=== PATIENT | male | born 1955 | race Caucasian/White ===

== ENCOUNTER → 2020-08-22 11:36 | Outpatient (BNVA) | payer MEDICARE, SELFPAY | PROVIDERS: Visit Provider Nurse Practitioner Family | DX: E78.5 Hyperlipidemia, unspecified (principal); I10 Essential (primary) hypertension; R60.0 Localized edema | CPT/HCPCS: 80053; 80061; 83880 ==

== ENCOUNTER → 2021-06-21 09:10 | Outpatient (BNVA) | payer MEDICARE, SELFPAY | PROVIDERS: PCP Nurse Practitioner Family; Referring Provider Nurse Practitioner Family; Visit Provider Specialist | DX: G62.89 Other specified polyneuropathies (principal); F17.210 Nicotine dependence, cigarettes, uncomplicated | CPT/HCPCS: 95909 ==

== ENCOUNTER → 2021-09-27 09:19 | Outpatient (BNVA) | payer MEDICARE, SELFPAY | PROVIDERS: PCP Nurse Practitioner Family; Visit Provider Nurse Practitioner Family | DX: E78.5 Hyperlipidemia, unspecified (principal); I10 Essential (primary) hypertension | CPT/HCPCS: 80053; 80061 ==

== ENCOUNTER → 2021-10-01 08:00 | Outpatient (BNVA) | payer MEDICARE, SELFPAY | PROVIDERS: PCP Nurse Practitioner Family; Visit Provider Nurse Practitioner Family | DX: R73.9 Hyperglycemia, unspecified (principal) | CPT/HCPCS: 83036 ==

== ENCOUNTER → 2022-11-19 10:09 | Outpatient (BNVA) | payer MEDICARE, SELFPAY | PROVIDERS: PCP Nurse Practitioner Family; Visit Provider Nurse Practitioner Family | DX: E78.5 Hyperlipidemia, unspecified (principal); I10 Essential (primary) hypertension | CPT/HCPCS: 80053; 80061; 85025 ==

== ENCOUNTER 2023-01-06 12:09 | Outpatient (CLI) | payer MEDICARE, SELFPAY ==
--- NOTE | 2023-01-06 12:19 | USCV_ITS ---
Smith Lopez Age: 67 Gender: M : 1955 Exam Date: 01/06/2023 12:39 Ordering Phys: Sunita Quiroga NP Technologist: CT Exam Location: [facility] [place] Indication: neuropathy Risk Factors: Previous Vascular Surgery: RIGHT LEFT BP: / BP: 146.0/ 88.00 0 Waveform Velocity (cm/s) Velocity (cm/s) Waveform Iliac Prox 85.2 Triphasic Iliac Mid 93.3 Triphasic Iliac Distal 125.5 Triphasic FILER METAL PATTERNS Triphasic 133.8 SFA Prox 94.7 Triphasic SFA Mid 98.7 Triphasic SFA Dist 119.7 Triphasic POP 71.0 Triphasic DELIVERY AND MAIL SORTER 45.6 Triphasic DPA 132.1 Triphasic DARRYL 1.0 FINDINGS Mild diffuse plaques in the iliac, femoral, popliteal and infrapopliteal vessels on the left side Normal/near normal Doppler flow velocities in the waveforms Normal resting DARRYL 1.0 CONCLUSIONS Mild diffuse plaques in the iliac, femoral, popliteal and infrapopliteal vessels on the left side. Normal resting DARRYL suggesting no significant arterial obstruction Dr Jaren Black MD [facility] (Electronically Signed) Final Date: 06 January 2023 20:04 S
== END 2023-01-06 12:10 | disposition home or self-care (01) ==
PROVIDERS: PCP Nurse Practitioner Family; Visit Provider Nurse Practitioner Family
DX: G25.81 Restless legs syndrome (principal); G62.9 Polyneuropathy, unspecified; I70.202 Unspecified atherosclerosis of native arteries of extremities, left leg
CPT/HCPCS: 93926

== ENCOUNTER 2023-01-28 20:00 | Outpatient (CLI) | payer MEDICARE, SELFPAY | END 2023-01-28 20:01 | disposition home or self-care (01) | LOC: SLEEP 23:18 | PROVIDERS: PCP Nurse Practitioner Family; Visit Provider Nurse Practitioner Family | DX: G47.33 Obstructive sleep apnea (adult) (pediatric) (principal); G47.10 Hypersomnia, unspecified | CPT/HCPCS: 95810 ==

== ENCOUNTER → 2023-02-03 13:44 | Outpatient (BNVA) | payer MEDICARE, SELFPAY | PROVIDERS: PCP Nurse Practitioner Family; Referring Provider Nurse Practitioner Family; Visit Provider Nurse Practitioner | DX: M17.12 Unilateral primary osteoarthritis, left knee | CPT/HCPCS: 20610; 73560; 73565; 99204; 99213; J1100; J2795; J3301 ==

== ENCOUNTER 2023-03-26 09:17 | Outpatient (CLI) | payer MEDICARE, SELFPAY | END 2023-03-26 09:18 | disposition home or self-care (01) | PROVIDERS: PCP Nurse Practitioner Family; Visit Provider Nurse Practitioner Family | DX: G95.29 Other cord compression (principal); G82.20 Paraplegia, unspecified; R32 Unspecified urinary incontinence | CPT/HCPCS: 99205 ==

== ENCOUNTER 2023-03-26 14:51 | Observation (INO) | payer MEDICARE, SELFPAY ==
[2023-03-26 16:12] VITALS: BMI 31.6
[2023-03-26 16:48] VITALS: BP 139/79; PULSE 72; RESP 16; TEMP 36.9; O2SAT 94
--- NOTE | 2023-03-26 16:48 | CTR_ITS ---
PROCEDURE INFORMATION: Exam: CT Head Without And With Contrast Exam date and time: 03/26/2023 8:50 PM Age: 67 years old Clinical indication: Other: See notes; Additional info: Le weakness, spasticity, urine incontinence, include a venogram. Unable to undergo mri. TECHNIQUE: Imaging protocol: Computed tomography of the head without and with contrast. Radiation optimization: All CT scans at this facility use at least one of these dose optimization techniques: automated exposure control; mA and/or kV adjustment per patient size (includes targeted exams where dose is matched to clinical indication); or iterative reconstruction. Contrast material: OMNI 350; Contrast volume: 80 ml; Contrast route: INTRAVENOUS (IV); REPORTING DATA: Count of CT and Cardiac NM exams in prior 12 months: This patient has received 0 known CTs and 0 known cardiac nuclear medicine studies in the 12 months prior to the current study. COMPARISON: No relevant prior studies available. RADIATION DOSE METRICS: Total DLP (mGy-cm): 3458 FINDINGS: Brain: Normal. No hemorrhage. Unremarkable white matter. No mass effect. No abnormal enhancement. Cerebral ventricles: No ventriculomegaly. Paranasal sinuses: Visualized sinuses are unremarkable. No fluid levels. Mastoid air cells: Visualized mastoid air cells are well aerated. Bones/joints: Unremarkable. No acute fracture. Soft tissues: Unremarkable. CT/CT head wo/w con [id number] IMPRESSION: No acute intracranial abnormality.
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
[2023-03-26 19:45] VITALS: BP 181/81; PULSE 72; RESP 17; TEMP 36.8; O2SAT 95
[2023-03-26] MEDS: iohexol 350 mg/mL 500 mL Btl (per mL) IV (21:00)
[2023-03-26] MEDS: baclofen 10 mg Tablet 20 MG PO (22:45)
[2023-03-26] MEDS: gabapentin 400 mg Capsule 800 MG PO (22:45)
[2023-03-26] MEDS: atorvastatin 40 mg Tablet 20 MG PO (22:46)
[2023-03-26] MEDS: ropinirole 2 mg Tablet 4 MG PO (23:04)
[2023-03-26 23:30] VITALS: BP 147/74; PULSE 65; RESP 15; TEMP 37.1; O2SAT 95
--- NOTE | 2023-03-27 | IR_ITS ---
WS: [id number] MYELOGRAM CERVICAL SPINE Fluoroscopic guided cervical myelogram CLINICAL INFORMATION: Spasticity, LE weakness, urine incontinence TECHNIQUE: The procedure, including risks, benefits, and complications, were discussed with the patie nt who agreed to proceed. A timeout was performed to confirm correct patient, procedure, and site. Using sterile technique, the patient was prepped and draped in the usual sterile fashion. After admin istration of local anesthesia using 1% preservative-free lidocaine and using fluoroscopic guidance, a 22-gauge spinal needle was advanced into the subarachnoid space at the L2-3 level. Subsequently 12 c c of Omnipaque 240 was administered into the thecal sac. The needle was removed and hemostasis was ac hieved. Subsequently the table was tilted down and contrast flowed freely into the cervical spine. Sp ot fluoroscopic images were obtained. FLUOROSCOPIC TIME: 8min [id number] # of spot films: 3 Spot fluoroscopic images demonstrate prior postoperative changes cervical fusion. Lumbar curve. Advan paula spondylitic changes lumbar spine with multilevel degenerative disc disease. Osteopenia. Vascular calcification. Multilevel central canal stenosis lumbar spine worse at L3-4. Severe central canal jessi nosis with partial contrast block at T10-11. No high-grade central canal stenosis in the cervical spi ne. Previous cervical laminectomy defects. IMPRESSION: Uncomplicated cervical thoracic and lumbar myelogram Please see CT myelogram report for additional detail.
--- NOTE | 2023-03-27 00:48 | PC.NURSE ---
pt scan this nurse helped transfer pt to wheelchair to transport to ct for scan. pt was a 1-2 asisst each time.
[2023-03-27 04:33] VITALS: BP 147/72; PULSE 73; RESP 16; TEMP 36.8; O2SAT 95
[2023-03-27 05:12] LABS: Basophils % 0.3 %; Eosinophils # 0.3 10^3/uL (0.0-0.8); Eosinophils % 4.5 %; Hematocrit 40.9 % (37-53); Lymphocytes # 1.6 10^3/uL (0.8-4.8); Lymphocytes % 27.6 %; Mean Corpuscular HGB Conc 33.3 g/dL (30-55); Mean Corpuscular Hemoglobin 30.8 pg (27-33); Mean Corpuscular Volume 92.5 fl (82-101); Mean Platelet Volume 11.4 fL (7.4-10.4); Monocytes # 0.5 10^3/uL (0.2-0.9); Monocytes % 7.9 %; Neutrophils # 3.39 10^3/uL (1.8-7.7); Neutrophils % 59.4 %; Nucleated Red Blood Cells % 0 %; Platelet Count 175 10^3/cmm (157-399); Red Blood Count 4.42 10^6/uL (3.85-5.65); Red Cell Distribution Width 12.3 % (12.1-15.1); White Blood Count 5.72 10^3/uL (3.29-11.43)
[2023-03-27 05:35] LABS: Anion Gap 14.3 (5-19); Blood Urea Nitrogen 21 mg/dL (8-23); Calcium 8.9 mg/dL (8.5-10.5); Carbon Dioxide 25 mmol/L (22-29); Chloride 105 mmol/L (98-107); Glomerular Filtration Rate 112.8 mL/min (90-130); Glucose 116 mg/dL (65-115); Osmolality Calculated 294 mOsm/kg (285-295); Potassium 4.3 mmol/L (3.5-5.1); Sodium 140 mmol/L (136-145)
[2023-03-27 05:59] LABS: Magnesium 2.1 mg/dL (1.7-2.3); Vitamin B12 359 pg/mL (232-1245)
--- NOTE | 2023-03-27 06:22 | PC.NURSE ---
pt recuip pt takes his ropinirole differently at home to mange his pain. pt states he splits it up to be TID and now he is worried about pin control. this nurse assured him she would give that in report to oncoming nurse.
[2023-03-27] MEDS: acetaminophen 325 mg Tablet 650 MG PO (06:41)
[2023-03-27 08:00] VITALS: BP 175/85; PULSE 65; RESP 17; TEMP 36.6; O2SAT 92
[2023-03-27] MEDS: FUROsemide 20 mg Tablet PO ×2 (08:00→17:23)
[2023-03-27] MEDS: ropinirole 2 mg Tablet 4 MG PO ×2 (08:01→17:24)
[2023-03-27] MEDS: gabapentin 400 mg Capsule 800 MG PO ×3 (08:01→20:27)
[2023-03-27] MEDS: baclofen 10 mg Tablet 20 MG PO ×4 (08:01→20:27)
[2023-03-27] MEDS: potassium chloride ER 20 mEq Tablet PO (08:01)
--- NOTE | 2023-03-27 09:05 | PC.PHAR ---
PT STATES TAKES ROPINEROLE 4 MG 2MG 4 TIMES DAILY INSTEAD OF 4 MG TWICE DAILY
--- NOTE | 2023-03-27 10:08 | CT_ITS ---
WS: [id number] CT CERVICAL THORACIC AND LUMBAR MYELOGRAM TECHNIQUE: CT of the cervical thoracic and lumbar spine coronal and sagittal reformatted images post intrathecal administration of contrast. CLINICAL INFORMATION: pain, increasing weakness DLP: 947.57 mGy.cm (accession [id number]), 837.11 mGy.cm (accession [id number]), 709.48 mGy.c m (accession [id number]) All CT scans at [facility] use at least one of these dose optimization techniques: automated e xposure control; mA and/or kV adjustment per patient size (includes targeted exams where dose is matc hed to clinical indication); or iterative reconstruction. FINDINGS: Severe central canal stenosis at T10-11 due to central disc protrusion with indentation and flattenin g of the thoracic cord at this level. Slight anterolisthesis T10-11. Moderate to advanced facet arthr opathy at this level with ligamentum flavum hypertrophy. Spinal canal measures approximately 4.6 mm a t T10-11. Mild to moderate central canal stenosis at T12-L1 eccentric to the RIGHT with disc osteophyte complex . Mild to moderate narrowing thecal sac at L1-L2 and L2-L3. Severe central canal stenosis L3-4 and mode rate to severe at L4-5. Small central protrusions at T7-T8 and T9-T10 with mild central canal stenosis. Multilevel foraminal narrowing thoracic spine worse at bilateral T9-T10, bilateral T10-11. Moderate facet arthropathy lowe r thoracic spine. Severe RIGHT T12-L1 bony foraminal narrowing. Moderate bilateral L3-4 and L4-5 fora kajal narrowing. Straightening of the normal cervical lordosis with prior dorsal fusion C3-C6. Interconnecting rods ap pear intact. No significant hardware loosening. Ankylosis cervical spine at C2-C6. Decompressive lami nectomies C3-C6. No significant central canal stenosis in the cervical spine. Mild central canal stenosis due to tiny central disc osteophyte protrusions at C6-C7 and C7-T1. Mastoid air cells are well aerated. IMPRESSION: 1. Severe central canal stenosis at T10-11 with central disc protrusion. Indentation and flattening of the thoracic cord at this level. Partial contrast block at this level on the fluoroscopic images. 2. Mild to moderate central canal stenosis at T12-L1. 3. Multilevel central canal stenosis in the lumbar spine worse at L3-4 and L4-5 moderate to severe a t these levels worst at L3-4. 4. Severe RIGHT T12-L1 bony foraminal narrowing. 5. Moderate bilateral L3-4 L4-5 foraminal narrowing. 6. No significant central canal stenosis in the cervical spine.
--- NOTE | 2023-03-27 10:09 | CT_ITS ---
WS: [id number] CT CERVICAL THORACIC AND LUMBAR MYELOGRAM TECHNIQUE: CT of the cervical thoracic and lumbar spine coronal and sagittal reformatted images post intrathecal administration of contrast. CLINICAL INFORMATION: pain, increasing weakness DLP: 947.57 mGy.cm (accession [id number]), 837.11 mGy.cm (accession [id number]), 709.48 mGy.c m (accession [id number]) All CT scans at [facility] use at least one of these dose optimization techniques: automated e xposure control; mA and/or kV adjustment per patient size (includes targeted exams where dose is matc hed to clinical indication); or iterative reconstruction. FINDINGS: Severe central canal stenosis at T10-11 due to central disc protrusion with indentation and flattenin g of the thoracic cord at this level. Slight anterolisthesis T10-11. Moderate to advanced facet arthr opathy at this level with ligamentum flavum hypertrophy. Spinal canal measures approximately 4.6 mm a t T10-11. Mild to moderate central canal stenosis at T12-L1 eccentric to the RIGHT with disc osteophyte complex . Mild to moderate narrowing thecal sac at L1-L2 and L2-L3. Severe central canal stenosis L3-4 and mode rate to severe at L4-5. Small central protrusions at T7-T8 and T9-T10 with mild central canal stenosis. Multilevel foraminal narrowing thoracic spine worse at bilateral T9-T10, bilateral T10-11. Moderate facet arthropathy lowe r thoracic spine. Severe RIGHT T12-L1 bony foraminal narrowing. Moderate bilateral L3-4 and L4-5 fora kajal narrowing. Straightening of the normal cervical lordosis with prior dorsal fusion C3-C6. Interconnecting rods ap pear intact. No significant hardware loosening. Ankylosis cervical spine at C2-C6. Decompressive lami nectomies C3-C6. No significant central canal stenosis in the cervical spine. Mild central canal stenosis due to tiny central disc osteophyte protrusions at C6-C7 and C7-T1. Mastoid air cells are well aerated. IMPRESSION: 1. Severe central canal stenosis at T10-11 with central disc protrusion. Indentation and flattening of the thoracic cord at this level. Partial contrast block at this level on the fluoroscopic images. 2. Mild to moderate central canal stenosis at T12-L1. 3. Multilevel central canal stenosis in the lumbar spine worse at L3-4 and L4-5 moderate to severe a t these levels worst at L3-4. 4. Severe RIGHT T12-L1 bony foraminal narrowing. 5. Moderate bilateral L3-4 L4-5 foraminal narrowing. 6. No significant central canal stenosis in the cervical spine.
--- NOTE | 2023-03-27 10:09 | CT_ITS ---
WS: [id number] CT CERVICAL THORACIC AND LUMBAR MYELOGRAM TECHNIQUE: CT of the cervical thoracic and lumbar spine coronal and sagittal reformatted images post intrathecal administration of contrast. CLINICAL INFORMATION: pain, increasing weakness DLP: 947.57 mGy.cm (accession [id number]), 837.11 mGy.cm (accession [id number]), 709.48 mGy.c m (accession [id number]) All CT scans at [facility] use at least one of these dose optimization techniques: automated e xposure control; mA and/or kV adjustment per patient size (includes targeted exams where dose is matc hed to clinical indication); or iterative reconstruction. FINDINGS: Severe central canal stenosis at T10-11 due to central disc protrusion with indentation and flattenin g of the thoracic cord at this level. Slight anterolisthesis T10-11. Moderate to advanced facet arthr opathy at this level with ligamentum flavum hypertrophy. Spinal canal measures approximately 4.6 mm a t T10-11. Mild to moderate central canal stenosis at T12-L1 eccentric to the RIGHT with disc osteophyte complex . Mild to moderate narrowing thecal sac at L1-L2 and L2-L3. Severe central canal stenosis L3-4 and mode rate to severe at L4-5. Small central protrusions at T7-T8 and T9-T10 with mild central canal stenosis. Multilevel foraminal narrowing thoracic spine worse at bilateral T9-T10, bilateral T10-11. Moderate facet arthropathy lowe r thoracic spine. Severe RIGHT T12-L1 bony foraminal narrowing. Moderate bilateral L3-4 and L4-5 fora kajal narrowing. Straightening of the normal cervical lordosis with prior dorsal fusion C3-C6. Interconnecting rods ap pear intact. No significant hardware loosening. Ankylosis cervical spine at C2-C6. Decompressive lami nectomies C3-C6. No significant central canal stenosis in the cervical spine. Mild central canal stenosis due to tiny central disc osteophyte protrusions at C6-C7 and C7-T1. Mastoid air cells are well aerated. IMPRESSION: 1. Severe central canal stenosis at T10-11 with central disc protrusion. Indentation and flattening of the thoracic cord at this level. Partial contrast block at this level on the fluoroscopic images. 2. Mild to moderate central canal stenosis at T12-L1. 3. Multilevel central canal stenosis in the lumbar spine worse at L3-4 and L4-5 moderate to severe a t these levels worst at L3-4. 4. Severe RIGHT T12-L1 bony foraminal narrowing. 5. Moderate bilateral L3-4 L4-5 foraminal narrowing. 6. No significant central canal stenosis in the cervical spine.
--- NOTE | 2023-03-27 11:15 | PC.CHAP ---
Pastoral Care Encounter/Spiritual Assessment Type of Contact [] Declined detention deputy visit [] Patient/Family/Request visit [] Outpatient visit [] Follow-up visit [] Physician referral [] Code/Alert [x] Routine visit [] Staff referral [] Actively dying [] Patient sleeping [] Family support [] [] Out of room [] Palliative care [] [x] Receiving care in room [] Pre-surgical visit [] Trauma [] Long length of stay [] ICU visit [] Other: Relational/Emotional Strength [x] Patient feels connected with others/family/visitors/staff [] Distress [] Loneliness/isolation [] Abandonment Spirituality of Patient [x] Person of Maddi [] Attends Taoist of their Maddi [x] Believes in Prayer [] Reads Bible or Caodaism materials [] There are Spiritual issues to be addressed [employer] Strategist Interventions [x] Prayer [x] Active listening [x] Non-anxious presence [x] Spiritual/emotional support [] Crisis/trauma care [x] Spiritual counseling [] Bereavement support [] Provided bereavement packet [] Provided Bible/devotional materials [] Provided toy/stuffed animal, coloring book to patient or family member [] Provided Communion [] Anointing/[place] [] Salvation [x] Completed spiritual assessment [] Other: Impact on Illness or Injury [] Angry [] Fearful [] Anxious [] Often cries [] Exhaustion [] Unable to work [] Unable to attend christianity [] Unable to walk/stand [] Unable to read [] Unable to drive [] Unable to eat/drink [] Unable to sleep [] Unable to be with family [] Patient intubated [] Other: Summary has pain and unable to move has nerve from back into leg waiting on doctor for results has a good attitude not sure when he ell go home Time spent with patient 10 mins
[2023-03-27 16:00] VITALS: BP 144/64; PULSE 59; RESP 17; TEMP 36.6; O2SAT 94
--- NOTE | 2023-03-27 16:12 | P.PN_ITS ---
Vitals/I&O/Wt Last Vital Signs Temp 97.8 F 03/27/23 08:00 Pulse 65 03/27/23 08:00 Resp 17 03/27/23 08:00 BP 175/85 03/27/23 08:00 Pulse Ox 92 03/27/23 08:00 O2 Del Method Room Air 03/27/23 08:00 03/27/23 03/27/23 03/27/23 06:59 14:59 22:59 Intake Total 0 / 0 Output Total 650 / 650 325 / 325 Balance -650 / -410 -325 / -325 Weight last 48 hrs Weight 199 lb 1 oz Weight 201 lb 9.6 oz Data 03/27/23 04:44 03/27/23 04:44 A&P Assessment and plan (1) Acquired spastic diplegia of lower extremities: His myelogram documents severe cord compression at T11 T10 which is equivalent to his sensory level. No signs of stenosis above that. If Dr. Villafana would take a look at his images and make a suggestion on his recommendation it would be very helpful and then the patient could probably go home. It would be a good idea to check his bladder because he very likely has neurogenic bladder and he looks like he probably has neurogenic bladder as he is pretty constipated from the CAT scan images. I will need to see him in the office to manage his spasticity. I talked with Dr. Jackson. (2) Spinal cord compression: Attestations 2 Medical Necessity Statement*: Progressive gait disorder with severe spasticity in the legs. Coding Level of Care Code Acute Code for [facility] Fwd Diagnoses Acquired spastic diplegia of lower extremities G82.20 Spinal cord compression G95.20
[2023-03-27 19:41] VITALS: BP 143/73; PULSE 57; RESP 16; TEMP 36.9; O2SAT 94
[2023-03-27] MEDS: ropinirole 2 mg Tablet PO (20:27)
[2023-03-27] MEDS: atorvastatin 40 mg Tablet 20 MG PO (20:27)
--- NOTE | 2023-03-27 22:18 | P.PN_ITS ---
Subjective 2 Subjective: Denies additional new symptoms. Vitals/I&O/Wt Last Vital Signs Temp 98.4 F 03/27/23 19:41 Pulse 57 L 03/27/23 19:41 Resp 16 03/27/23 19:41 BP 143/73 03/27/23 19:41 Pulse Ox 94 03/27/23 19:41 O2 Del Method Room Air 03/27/23 19:41 03/27/23 03/27/23 03/27/23 06:59 14:59 22:59 Intake Total 0 / 0 240 / 240 Output Total 650 / 650 325 / 325 580 / 905 Balance -650 / -410 -325 / -325 -340 / -665 Weight last 48 hrs Weight 90.293 kg Weight 91.444 kg Physical Exam 2 Const: COMMON NORMALS: patient oriented x3 and alert GENERAL APPEARANCE: c ooperative ORIENTATION/CONSCIOUSNESS: Yes awake HENMT: COMMON NORMALS: oropharynx normal Neck/C-Spine: COMMON NORMALS: no JVD Resp: COMMON NORMALS: normal respiratory effort and clear to auscultation bilaterally AUSCULTATION: clear to auscultation bilaterally Cardio: COMMON NORMALS: no JVD, regular rhythm, S1 normal heart sound present, S2 normal heart sound present and No murmurs present (Cardio) RHYTHM: regular rhythm HEART SOUNDS: S1 normal heart sound present and S2 normal heart sound present GI: COMMON NORMALS: Normal to inspection, nondistended, normoactive bowel sounds present, Soft to palpation and non-tender PALPATION: Yes Soft to palpation Extremity: COMMON NORMALS: no joint enlargement and no pedal edema Neuro: COMMON NORMALS: patient oriented x3 SENSORIUM/ORIENTATION: Yes alert OTHER: LE Weakness, spasticity decreased sensation Skin: COMMON NORMALS: no rashes or lesions noted GENERAL SKIN EXAM: no rashes or lesions noted Data 03/27/23 04:44 03/27/23 04:44 A&P Assessment and plan (1) Acquired spastic diplegia of lower extremities: Discussed with radiology, status post myogram, reviewed radiologist recommendation, discussed findings with neurology, discussed findings with neurosurgery, consultation appreciated for additional assessment for feasibility of spinal cord decompression with noted compression at T10-11 level, multilevel disease, additional significant spinal canal narrowing at L3-4. CT head reviewed, WNL. Discussed with case management. PT assessment. Case management consultation. Reviewed TSH, B12, magnesium WNL. (2) Spinal cord compression: Plan HTN: Monitor blood pressure. Recurrent lower extremity edema: Takes Lasix at home. Chronic back pain: Continue gabapentin, baclofen. Tylenol as needed. Smoking addiction: Encourage cessation. Nicotine replacement as needed. Attestations 2 Medical Necessity Statement*: Continue admission for assessment management of spinal cord compression progressive spastic lower extremity weakness, urinary bladder incontinence. and High Time for a total of 65 minutes, includes reviewing past or interval history, examining/interviewing patient, placing orders, counseling patient/family/other support, discussing plan of care with staff, communicating with other healthcare providers, documenting encounter and coordinating care Diagnoses Acquired spastic diplegia of lower extremities G82.20 Spinal cord compression G95.20
[2023-03-27 22:25] VITALS: PULSE 51
--- NOTE | 2023-03-27 22:25 | ECG_ITS ---
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 Measurements Intervals [place] Rate: 54 P: 72 DC: 223 QRS: 84 QRSD: 101 T: 74 QT: 429 QTc: 408 Interpretive Statements SINUS BRADYCARDIA WITH FIRST DEGREE AV BLOCK INCOMPLETE RIGHT BUNDLE BRANCH BLOCK [90+ ms QRS DURATION, TERMINAL R IN V1/V2, 40+ ms S IN I/aVL/V4/V5/V6] No previous ECG available for comparison Electronically Signed On 03-28-2023 16:15:57 PROCESSING MGR by Jaren Black M.D. [id number]
[2023-03-27 23:04] LABS: NT Pro B Type Natriuretic Pept 218 pg/mL (0-125)
[2023-03-28 00:18] VITALS: BP 131/79; PULSE 59; RESP 17; TEMP 36.8; O2SAT 95
[2023-03-28 03:43] VITALS: BP 124/67; PULSE 63; RESP 15; TEMP 36.7; O2SAT 94
[2023-03-28] MEDS: ropinirole 2 mg Tablet PO ×2 (04:36→12:05)
--- NOTE | 2023-03-28 06:30 | P.CONIM_ITS ---
Providers/Reason For Consult 2 Consulting Physician/Specialty*: hospitalist Reason for Consult*: weaknes and pain in legs Attending Physician: Ashley Garcia MD Primary Care Provider: Sunita Quiroga NP History of Present Illness History of Present Illness Smith Lopez is a 67 year old male has been having weakness for several years. Patient stated he started walking with a cane about 2 years ago. Patient had posterior cervical decompression done in 2013. Patient has burning in his anterior thighs. Patient over the last 3 months is now progressed down to a walker. Review of Systems 2 Const: Denies: fever(s), chills, body aches or malaise ENMT: Denies: throat pain Card: Denies: chest pain, edema, pre-syncope or dyspnea on exertion Resp: Denies: dyspnea, productive cough, change in phlegm color or hemoptysis GI: Denies: abdominal pain, nausea, vomiting, diarrhea, constipation, hematochezia or melena : Reports: urinary incontinence; Denies: flank pain, difficulty urinating, urinary frequency or hematuria Musc: Denies: back pain, joint swelling or joint redness Skin/Breast: Denies: rash or new lesions Neuro: Reports: numbness in extremities, weakness in extremities and difficulty walking; Denies: headache(s), dizziness, confusion or seizure-like activity Te/Lymph: Denies: easy bleeding or tender lymph nodes Medications/Allergies Home Medications Medication Instructions Recorded Confirmed Last Taken Type BLOOD FLOW 7 1 cap PO DAILY 11/19/22 03/27/23 Unknown History curcumin-phosphatidylcholine 500 500 mg PO DAILY 11/19/22 03/27/23 03/26/23 History mg capsule baclofen 20 mg tablet 20 mg PO QID 03/26/23 03/26/23 03/26/23 12:00 History 20 furosemide 20 mg tablet 20 mg PO 2XD 03/26/23 03/26/23 03/24/23 12:00 History 20 gabapentin 800 mg tablet 800 mg PO TID 03/26/23 03/26/23 03/26/23 12:30 History 800 ibuprofen 400 mg PO TID 03/26/23 03/27/23 03/26/23 History potassium chloride 20 mEq 20 meq PO DAILY 03/26/23 03/26/23 03/24/23 05:00 History tablet,extended release(part/cryst) 20 ropinirole 4 mg tablet See Rx Instructions .Route .COMPLEX 03/26/23 03/27/23 03/26/23 05:00 History simvastatin 20 mg tablet 20 mg PO BEDTIME 03/26/23 03/26/23 03/25/23 20:00 History Allergies Allergy/AdvReac Type Severity Reaction Status Date / Time lisinopril Allergy Intermediate angioedema Verified 03/26/23 09:30 aspirin Allergy Mild unknown Verified 03/26/23 09:30 morphine Allergy Mild agitation Verified 03/26/23 09:30 and confusion Current Medications Generic Name Dose Route Start Last Admin Trade Name Freq PRN Reason Stop Dose Admin Acetaminophen 650 mg 03/26/23 16:49 03/27/23 06:41 Acetaminophen 325 Mg Tablet PO 650 mg Q6H PRN Administration Mild/Mod Pain Or Temp >/= 101 Atorvastatin Calcium 20 mg 03/26/23 21:00 03/27/23 20:27 Atorvastatin 40 Mg Tablet PO 20 mg BEDTIME CLIFTON Administration Baclofen 20 mg 03/26/23 21:00 03/27/23 20:27 Baclofen 10 Mg Tablet PO 20 mg QID CL[place] Administration Furosemide 20 mg 03/27/23 09:00 03/27/23 17:23 Furosemide 20 Mg Tablet PO 20 mg BID CL[place] Administration Gabapentin 800 mg 03/26/23 21:00 03/27/23 20:27 Gabapentin 400 Mg Capsule PO 800 mg TID CLIFTON Administration Potassium Chloride 20 meq 03/27/23 09:00 03/27/23 08:01 Potassium Chloride Er 20 Meq Tablet PO 20 meq DAILY CLIFTON Administration Ropinirole HCl 2 mg 03/28/23 05:00 03/28/23 04:36 Ropinirole 2 Mg Tablet PO 2 mg QID CLIFTON Administration PFSH Acute 2 PFSH: Medical History Hypertension Back pain Neck pain Hip pain Hyperlipidemia Surgical History H/O laminectomy History of hip replacement Family History Mother Dementia Hypertension Father Family history of premature coronary artery disease Social History Smoking and tobacco/nicotine status: current every day tobacco/nicotine user Alcohol intake: never Substance/Drug Use: never Lives independently: Yes Household members: spouse Marital status: service: No Current occupational status: disabled Do you think of yourself as: Straight/Heterosexual Current gender identity: Male Maddi/Mormon: Hinduism Vitals/I&O/Wt Last Vital Signs Temp 98.0 F 03/28/23 03:43 Pulse 63 03/28/23 03:43 Resp 15 03/28/23 03:43 BP 124/67 03/28/23 03:43 Pulse Ox 94 03/28/23 03:43 O2 Del Method Room Air 03/28/23 03:43 03/27/23 03/27/23 03/28/23 14:59 22:59 06:59 Intake Total 0 / 0 240 / 240 Output Total 325 / 325 980 / 1305 350 / 1655 Balance -325 / -325 -740 / -1065 -350 / -1415 Weight last 48 hrs Weight 201 lb 6 oz Weight 199 lb 1 oz Weight 201 lb 9.6 oz Physical Exam 2 Narrative: Patient is sitting up at the bedside has weakness in his legs. Data 03/27/23 04:44 03/27/23 04:44 A&P Assessment and plan (1) Spinal cord compression: Patient has significant stenosis at T10 and 11 as well as L3 and L4. Discussed with patient of doing a decompression at T10-11 as well as L3-4. Discussed with him that this would prevent the progression from getting worse since it is compressing on the spinal cord not sure if the symptoms will improve after the decompression did state that the burning of his anterior thighs may get better since is at the L3-4 level. Patient is going to discuss this with his and make a decision if he wants to proceed with any type of surgery. Consult Attestations 2 Medical Necessity Statement: Per primary service Coding Level of Care Code Acute Code for Chg Fwd Diagnoses Spinal cord compression G95.20
[2023-03-28 07:29] VITALS: BP 137/80; PULSE 51; RESP 16; TEMP 36.4; O2SAT 95
--- NOTE | 2023-03-28 08:11 | PC.SOCIAL ---
IMM Update pg 2 of IMM not updated as patient is currently in observation status.
[2023-03-28] MEDS: FUROsemide 20 mg Tablet PO (08:42)
[2023-03-28] MEDS: potassium chloride ER 20 mEq Tablet PO (08:42)
[2023-03-28] MEDS: gabapentin 400 mg Capsule 800 MG PO ×2 (08:42→14:16)
[2023-03-28] MEDS: baclofen 10 mg Tablet 20 MG PO ×2 (08:42→12:05)
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
[2023-03-28] MEDS: acetaminophen 325 mg Tablet 650 MG PO (14:17)
[2023-03-28 15:15] VITALS: BP 137/80; PULSE 51; RESP 16; TEMP 36.4; O2SAT 95
== END 2023-03-28 15:17 | disposition home or self-care (01) ==
PROVIDERS: Internal Medicine; Admitting Provider Specialist; PCP Nurse Practitioner Family; Visit Provider Specialist
DX: G95.20 Unspecified cord compression (principal); M48.04 Spinal stenosis, thoracic region; R00.1 Bradycardia, unspecified; I44.0 Atrioventricular block, first degree; I45.10 Unspecified right bundle-branch block; I10 Essential (primary) hypertension; G82.20 Paraplegia, unspecified; M51.24 Other intervertebral disc displacement, thoracic region; E78.5 Hyperlipidemia, unspecified; F17.200 Nicotine dependence, unspecified, uncomplicated; G95.29 Other cord compression; R32 Unspecified urinary incontinence
CPT/HCPCS: 36415; 51798; 62305; 70470; 72126; 72129; 72133; 80048; 82607; 83735; 83880; 84443; 85025; 93005; 97110; 97116; 97161; 97530; 99205; G0378; G0379; Q9966; Q9967

== ENCOUNTER → 2023-05-29 10:57 | Outpatient (BNVA) | payer MEDICARE, SELFPAY | PROVIDERS: PCP Nurse Practitioner Family; Visit Provider Nurse Practitioner | DX: M17.12 Unilateral primary osteoarthritis, left knee (principal); Z71.89 Other specified counseling | CPT/HCPCS: 20610; 99213 ==

== ENCOUNTER → 2023-07-14 09:06 | Outpatient (BNVA) | payer MEDICARE, SELFPAY | PROVIDERS: PCP Nurse Practitioner Family; Visit Provider Nurse Practitioner Family | DX: L97.412 Non-pressure chronic ulcer of right heel and midfoot with fat layer exposed (principal) | CPT/HCPCS: 11042; 99213 ==

== ENCOUNTER → 2023-07-21 09:52 | Outpatient (BNVA) | payer MEDICARE, SELFPAY | PROVIDERS: PCP Nurse Practitioner Family; Visit Provider Nurse Practitioner Family | DX: Z09 Encounter for follow-up examination after completed treatment for conditions other than malignant neoplasm (principal); Z87.2 Personal history of diseases of the skin and subcutaneous tissue | CPT/HCPCS: 99212 ==

== ENCOUNTER 2023-10-09 10:45 | Outpatient (RCR) | payer MEDICARE, SELFPAY | END 2023-10-19 23:59 | disposition home or self-care (01) | LOC: SPT 10:45 | PROVIDERS: PCP Nurse Practitioner Family; Visit Provider Nurse Practitioner Family | DX: I89.0 Lymphedema, not elsewhere classified (principal); L03.119 Cellulitis of unspecified part of limb; R60.0 Localized edema | CPT/HCPCS: 97140; 97161 ==

== ENCOUNTER → 2023-10-13 16:02 | Outpatient (BNVA) | payer MEDICARE, SELFPAY | PROVIDERS: PCP Nurse Practitioner Family; Visit Provider Internal Medicine Cardiovascular Disease | DX: R06.02 Shortness of breath (principal); R07.9 Chest pain, unspecified; I45.10 Unspecified right bundle-branch block; R00.0 Tachycardia, unspecified; I10 Essential (primary) hypertension; E78.5 Hyperlipidemia, unspecified; G82.20 Paraplegia, unspecified; I26.99 Other pulmonary embolism without acute cor pulmonale; I89.0 Lymphedema, not elsewhere classified; F17.200 Nicotine dependence, unspecified, uncomplicated | CPT/HCPCS: 36415; 80048; 83880; 93005; 99204 ==

== ENCOUNTER 2023-10-20 06:00 | Outpatient (RCR) | payer MEDICARE, SELFPAY | END 2023-11-19 13:48 | disposition home or self-care (01) | LOC: SPT 06:00 | PROVIDERS: PCP Nurse Practitioner Family; Visit Provider Nurse Practitioner Family | DX: I89.0 Lymphedema, not elsewhere classified (principal) | CPT/HCPCS: 97140 ==

== ENCOUNTER → 2023-12-02 14:20 | Outpatient (BNVA) | payer MEDICARE, SELFPAY | PROVIDERS: PCP Nurse Practitioner Family; Visit Provider Orthopaedic Surgery | DX: M48.062 Spinal stenosis, lumbar region with neurogenic claudication (principal); M48.04 Spinal stenosis, thoracic region | CPT/HCPCS: 36415; 80053; 85025; 99214 ==

== ENCOUNTER 2023-12-04 09:30 | Outpatient (CLI) | payer MEDICARE, SELFPAY ==
[2023-12-04 10:30] LABS: Charge for UA Resulting for Rev
[2023-12-04 10:51] LABS: Bilirubin Urine Negative (Negative); Blood Urine Negative (Negative); Glucose Urine UA Negative (Normal); Ketones Urine Negative (Negative); Leukocyte Esterase Urine Negative (Negative); Nitrate Urine Negative (Negative); Protein Urine Negative (Negative); Specific Gravity, Urine 1.012 (1.005-1.030); Urine Appearance Clear (CLEAR); Urine Color Yellow (Yellow); Urobilinogen Urine 0.2 mg/dL (Negative); pH Urine 5.5 (5-7)
[2023-12-04 10:57] LABS: Bacteria Urine None Seen /hpf; Hyaline Casts Urine 0-4 /lpf; RBC Urine 0-2 /hpf (0-2); Squamous Epithelial Cell Urine 0-5 /hpf (0-5); WBC Urine 0-5 /hpf (0-5)
== END 2023-12-04 09:31 | disposition home or self-care (01) ==
LOC: LAB 09:31
PROVIDERS: PCP Nurse Practitioner Family; Visit Provider Orthopaedic Surgery
DX: Z01.818 Encounter for other preprocedural examination (principal)
CPT/HCPCS: 81003; 81015

== ENCOUNTER 2024-02-19 20:05 | Inpatient (IN) | payer MEDICARE, SELFPAY ==
[2024-02-19] VITALS (7 sets, daily range): BP systolic 155–176; BP diastolic 50–72; PULSE 101–106; RESP 20–22; TEMP 38.6–39; O2SAT 91–95; BMI 39.1
--- NOTE | 2024-02-19 20:28 | ECG_ITS ---
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 Measurements Intervals [place] Rate: 102 P: 69 [place]: 189 QRS: 95 QRSD: 93 T: 54 QT: 320 QTc: 418 Interpretive Statements SINUS TACHYCARDIA BORDERLINE RIGHT AXIS DEVIATION [QRS AXIS > 90] INCOMPLETE RIGHT BUNDLE BRANCH BLOCK [90+ ms QRS DURATION, TERMINAL R IN V1/V2, 40+ ms S IN I/aVL/V4/V5/V6] ABNORMAL RHYTHM ECG Compared to ECG 10/13/2023 16:09:03 Sinus bradycardia no longer present Electronically Signed On 02-20-2024 12:20:02 CDT by Amie Seals M.D. [id number]
--- NOTE | 2024-02-19 20:29 | XRR_ITS ---
PROCEDURE INFORMATION: Exam: XR Chest Exam date and time: 02/19/2024 8:57 PM Age: 68 years old Clinical indication: Shortness of breath; Prior surgery; Surgery date: 6+ months; Surgery type: Cervical; Additional info: SOB TECHNIQUE: Imaging protocol: Radiologic exam of the chest. Views: 1 view. COMPARISON: CT cervical spine w con [id number] 03/27/2023 1:58 PM FINDINGS: Lungs: No focal consolidation. Pleural spaces: No sizable pleural effusion. No pneumothorax. Heart/Mediastinum: Aortic calcifications. Unremarkable cardiomediastinal silhouette. Bones/joints: The spine demonstrates mild degenerative changes at multiple levels. There are bilateral acromioclavicular and glenohumeral joint degenerative changes, severe on the right. Multiple chronic left-sided rib fracture deformities. Partially imaged cervical fixation hardware. XR/XR chest 1V portable [id number] IMPRESSION: No acute findings.
[2024-02-19 20:39] LABS: Basophils % 0.1 %; Eosinophils % 0.1 %; Hematocrit 38.1 % (37-53); Lymphocytes # 0.4 10^3/uL (0.8-4.8); Lymphocytes % 4.9 %; Mean Corpuscular HGB Conc 31.8 g/dL (30-55); Mean Corpuscular Hemoglobin 28.9 pg (27-33); Mean Corpuscular Volume 91.1 fl (82-101); Mean Platelet Volume 11.3 fL (7.4-10.4); Monocytes # 0.3 10^3/uL (0.2-0.9); Monocytes % 4.5 %; Neutrophils % 90.1 %; Nucleated Red Blood Cells % 0 %; Platelet Count 152 10^3/cmm (157-399); Red Blood Count 4.18 10^6/uL (3.85-5.65); Red Cell Distribution Width 14.7 % (12.1-15.1); White Blood Count 7.11 10^3/uL (3.29-11.43)
[2024-02-19 20:46] LABS: INR 1.09 (0.8-1.2); Partial Thromboplastin Time 33.6 SECONDS (23.9-36.7)
[2024-02-19 20:52] LABS: Bilirubin Urine Negative (Negative); Blood Urine Negative (Negative); Glucose Urine UA Negative (Normal); Ketones Urine Negative (Negative); Leukocyte Esterase Urine Negative (Negative); Nitrate Urine Negative (Negative); Protein Urine Trace (Negative); Specific Gravity, Urine 1.022 (1.005-1.030); Urine Appearance Clear (CLEAR); Urine Color Yellow (Yellow); pH Urine 7.5 (5-7)
[2024-02-19 20:53] LABS: Troponin(5th) Baseline 27 ng/L (0-15)
[2024-02-19 20:54] LABS: Lactic Sepsis W/Reflex 0.8 mmol/L (0.5-2.2)
[2024-02-19 20:55] LABS: Add Urine Microscopic? YES; Bacteria Urine None Seen /hpf; Hyaline Casts Urine 0-4 /lpf; RBC Urine 0-2 /hpf (0-2); Squamous Epithelial Cell Urine 0-5 /hpf (0-5); WBC Urine 0-5 /hpf (0-5)
[2024-02-19 21:08] LABS: Alanine Aminotransferase 16 U/L (0-41); Albumin Level 4.3 g/dL (3.5-5.2); Alkaline Phosphatase 121 U/L (40-130); Anion Gap 13.1 (5-19); Aspartate Amino Transferase 18 U/L (0-40); Blood Urea Nitrogen 18 mg/dL (8-23); Calcium 8.6 mg/dL (8.5-10.5); Carbon Dioxide 29 mmol/L (22-29); Chloride 103 mmol/L (98-107); Globulin 2.2 g/dL (1.3-4.6); Glomerular Filtration Rate 112.5 mL/min (90-130); Glucose 122 mg/dL (65-115); NT Pro B Type Natriuretic Pept 243 pg/mL (0-125); Osmolality Calculated 295 mOsm/kg (285-295); Potassium 4.1 mmol/L (3.5-5.1); Sodium 141 mmol/L (136-145); Total Bilirubin 0.8 mg/dL (0.15-1.2); Total Protein 6.5 g/dL (6.6-8.7)
[2024-02-19] MEDS: ipratropium-albuterol 3 mL Neb INHALATION (21:11)
[2024-02-19] MEDS: acetaminophen 500 mg Tablet 1000 MG PO (22:03)
[2024-02-19 22:53] LABS: Adenovirus Not Detected (NOT DETECT); Chlamydia Pneumoniae Not Detected (NOT DETECT); Coronavirus 229E,HKU1,NL63,OC4 Not Detected (NOT DETECT); Human Metapneumovirus Not Detected (NOT DETECT); Human Rhinovirus/Enterovirus Not Detected (NOT DETECT); Influenza A Not Detected (NOT DETECT); Influenza A H1 Not Detected (NOT DETECT); Influenza A H1-2009 Not Detected (NOT DETECT); Influenza A H3 Not Detected (NOT DETECT); Influenza B Not Detected (NOT DETECT); Mycoplasma Pneumoniae Not Detected (NOT DETECT); Parainfluenza Virus Type 1 Not Detected (NOT DETECT); Parainfluenza Virus Type 2 Not Detected (NOT DETECT); Parainfluenza Virus Type 3 Not Detected (NOT DETECT); Parainfluenza Virus Type 4 Not Detected (NOT DETECT); Respiratory Syncytial Virus A Not Detected (NOT DETECT); Respiratory Syncytial Virus B Not Detected (NOT DETECT); SARS-COV-2 Not Detected (NOT DETECT)
--- NOTE | 2024-02-19 23:04 | CTR_ITS ---
PROCEDURE INFORMATION: Exam: CTA Chest With Contrast Exam date and time: 02/19/2024 11:28 PM Age: 68 years old Clinical indication: Fever and shortness of breath; Additional info: Fevers/sob TECHNIQUE: Imaging protocol: Computed tomographic angiography of the chest with contrast. Exam focused on the arteries. 3D rendering (Not supervised by radiologist): MIP and/or 3D reconstructed images were created by the technologist. Radiation optimization: All CT scans at this facility use at least one of these dose optimization techniques: automated exposure control; mA and/or kV adjustment per patient size (includes targeted exams where dose is matched to clinical indication); or iterative reconstruction. Contrast material: OMNI 350; Contrast volume: 100 ml; Contrast route: INTRAVENOUS (IV); COMPARISON: CR (CHEST, ) 02/19/2024 8:57 PM RADIATION DOSE METRICS: Total DLP (mGy-cm): 495.9 FINDINGS: Pulmonary arteries: Normal. No pulmonary emboli. Aorta: Unremarkable. No aortic aneurysm. No aortic dissection. Lungs: Bibasilar atelectasis versus infiltrate. Pleural spaces: Unremarkable. No pneumothorax. No pleural effusion. Heart: Unremarkable. No cardiomegaly. No pericardial effusion. Lymph nodes: Scattered subcentimeter short axis nonspecific mediastinal nodes. Bones/joints: Unremarkable. No acute fracture. Soft tissues: Unremarkable. PROCEDURE INFORMATION: Exam: CT Abdomen And Pelvis With Contrast Exam date and time: 02/19/2024 11:28 PM Age: 68 years old Clinical indication: Fever and shortness of breath; Additional info: Fevers/sob TECHNIQUE: Imaging protocol: Computed tomography of the abdomen and pelvis with contrast. Radiation optimization: All CT scans at this facility use at least one of these dose optimization techniques: automated exposure control; mA and/or kV adjustment per patient size (includes targeted exams where dose is matched to clinical indication); or iterative reconstruction. Contrast material: OMNI 350; Contrast volume: 100 ml; Contrast route: INTRAVENOUS (IV); COMPARISON: MR lumbar spine wo con* [id number] 08/08/2023 5:08 AM RADIATION DOSE METRICS: Total DLP (mGy-cm): 1138.4 FINDINGS: Liver: Hepatic steatosis. Gallbladder and biliary ducts: Normal. No calcified stones. No ductal dilation. Pancreas: Normal. No ductal dilation. Spleen: Normal. No splenomegaly. Adrenal glands: Normal. No mass. Kidneys and ureters: Right kidney nonobstructing renal calyceal stones. Stomach and bowel: Unremarkable. No obstruction. No mucosal thickening. Appendix: No evidence of appendicitis. Intraperitoneal space: Supraumbilical small hernia containing omentum and a small amount of nonspecific fluid. Vasculature: Proximal renal artery atherosclerotic disease bilaterally with 70-80% luminal narrowing. Aortic atherosclerotic calcifications. Lymph nodes: Unremarkable. No enlarged lymph nodes. Urinary bladder: Unremarkable as visualized. Reproductive: Unremarkable as visualized. Bones/joints: Right hip arthroplasty changes. Soft tissues: Unremarkable. CT[facility] [id number] IMPRESSION: 1. Negative for pulmonary embolus. 2. Scattered subcentimeter short axis nonspecific mediastinal nodes. 3. Bibasilar atelectasis versus infiltrate. IMPRESSION: 1. Negative for acute inflammatory process in the abdomen or pelvis. 2. Hepatic steatosis. 3. Proximal renal artery atherosclerotic disease bilaterally with 70-80% luminal narrowing. 4. Right kidney nonobstructing renal calyceal stones. 5. Supraumbilical small hernia containing omentum and a small amount of nonspecific fluid. 6. Right hip arthroplasty changes. 7. Aortic atherosclerotic calcifications.
[2024-02-19 23:26] LABS: Troponin 5 2HR 29.84 ng/L (0-15); Troponin 5 2HR Delta 2.84 ABS# (0-10)
[2024-02-19] MEDS: iohexol 350 mg/mL 500 mL Btl (per mL) IV (23:52)
[2024-02-20] VITALS (14 sets, daily range): BP systolic 116–151; BP diastolic 41–70; PULSE 68–97; RESP 15–27; TEMP 37.2–39.3; O2SAT 91–97
--- NOTE | 2024-02-20 00:38 | ED_ITS ---
HPI - Back Pain/Injury 2 General: Chief Complaint: Back Pain/Injury Stated Complaint: SOB, Low back pain Time Seen by Provider: 02/19/24 20:08 Source: patient and family Mode of arrival: EMS Limitations: no limitations History of Present Illness: Patient is a 68-year-old male presenting to the emergency department by ambulance due to acute onset shortness of breath. Patient states he has chronic low back pain, he thinks that his pain has been making him more short of breath. He has a history of lymphedema, notes that his right lower extremity has become more red and swollen recently. He does arrive febrile temp of 101.4, and reports feeling diaphoretic. Other than the lymphedema and some hypertension and hyperlipidemia, he has no pertinent past medical history to report such as COPD or CHF. He does not use oxygen regularly, though does arrive on 4 L of O2 to maintain 94 to 95%. He also notes feeling more tired recently. MD elicited complaint: other (Shortness of breath) Onset (ago): hour(s) Timing: constant Associated symptoms: Reports fatigue; Deny abdominal pain, chills, dysuria, fever(s), nausea or vomiting Related Data Home Medications Medication Instructions Recorded Confirmed BLOOD FLOW 7 1 cap PO DAILY 11/19/22 02/20/24 curcumin-phosphatidylcholine 500 500 mg PO DAILY 11/19/22 02/20/24 mg capsule baclofen 20 mg tablet 20 mg PO QID 03/26/23 02/20/24 furosemide 20 mg tablet 20 mg PO DAILY 03/26/23 02/20/24 potassium chloride 20 mEq 20 meq PO DAILY 03/26/23 02/20/24 tablet,extended release(part/cryst) ropinirole 4 mg tablet See Rx Instructions .Route .COMPLEX 03/26/23 02/20/24 simvastatin 20 mg tablet 20 mg PO BEDTIME 03/26/23 02/20/24 amlodipine 5 mg tablet 5 mg PO DAILY 10/13/23 02/20/24 apixaban 5 mg tablet (Eliquis) 5 mg PO BID 02/20/24 02/20/24 ibuprofen 200 mg tablet (Advil) 600 mg PO Q6H PRN Pain 02/20/24 02/20/24 Previous Rx's Medication Instructions Recorded gabapentin 800 mg tablet See Rx Instructions .Route 04/07/23 .COMPLEX #300 tabs Allergies Allergy/AdvReac Type Severity Reaction Status Date / Time lisinopril Allergy Intermediate angioedema Verified 12/19/23 07:27 morphine Allergy Mild agitation Verified 12/19/23 07:27 and confusion Review of Systems 2 General: Reports: 10 or more systems reviewed and unremarkable except in HPI and below Const: Reports: fatigue; Denies: fever(s) or chills Eyes: Denies: change in vision ENMT: Denies: throat pain, ear or mastoid pain or nasal discharge Card: Denies: chest pain, palpitations, swelling of feet/ankles or lightheadedness Resp: Reports: dyspnea; Denies: productive cough or wheezing GI: Denies: abdominal pain, nausea, vomiting, diarrhea or constipation : Denies: flank pain, difficulty urinating, dysuria or urinary frequency Musc: Reports: back pain and extremity swelling; Denies: neck pain or joint pain Skin/Breast: Reports: erythema, changing lesions, non-healing lesions and lesions; Denies: rash Neuro: Denies: headache(s), numbness in extremities or weakness in extremities PFSH ED 2 PFSH: Medical History Hypertension Back pain Neck pain Hip pain Hyperlipidemia Surgical History H/O laminectomy History of hip replacement Family History Mother Dementia Hypertension Father Family history of premature coronary artery disease Social History Smoking and tobacco/nicotine status: never used tobacco/nicotine Alcohol intake: never Substance/Drug Use: never Lives independently: Yes Household members: spouse Marital status: service: No Current occupational status: disabled Do you think of yourself as: Straight/Heterosexual Current gender identity: Male Maddi/Roman Catholic: Quaker Physical Exam 2 Const: COMMON NORMALS: patient oriented x3 and alert GENERAL APPEARANCE: c ooperative NUTRITIONAL APPEARANCE: obese morbidly obese OTHER: Tired appearing, on 3-1/2 L O2 at this time with mild increase in work of breathing HENMT: COMMON NORMALS: normocephalic, atraumatic, moist oral mucous membranes and oropharynx normal HEAD & SCALP: normocephalic and atraumatic Eye: COMMON NORMALS: EOMs intact bilaterally, conjunctivae normal and no scleral icterus CONJUNCTIVA: Yes conjunctivae normal Neck/C-Spine: COMMON NORMALS: full ROM, supple and no JVD Chest: COMMONS NORMALS: normal inspection of the chest Resp: OTHER: Mild increase in work of breathing. Diffuse expiratory wheezing, no audible wheezing. No coughing. No retracting. Speaking in choppy sentences. Cardio: COMMON NORMALS: no JVD, regular rate, regular rhythm, S1 normal heart sound present, S2 normal heart sound present, No gallops present (Cardio), No murmurs present (Cardio) and No rub (Cardio) RATE: regular rate RHYTHM: r egular rhythm HEART SOUNDS: S1 normal heart sound present and S2 normal heart sound present GI: COMMON NORMALS: non-tender and no masses INSPECTION: Yes abdominal distension and Yes central obesity Back/Pelvis: COMMON NORMALS: no thoracic nor lumbar tenderness and thoraco- lumbar ROM normal Extremity: NARRATIVE EXTREMITY EXAM: Bilateral skin changes, lymphedema. Right lower extremity is slightly more swollen and erythematous, both legs have weeping wounds that are dressed upon arrival. Distal pulses difficult to palpate due to his body habitus. Neuro: COMMON NORMALS: patient oriented x3, moves all extremities, no focal motor deficits and no sensory deficits noted SENSORIUM/ORIENTATION: Yes alert Psych: COMMON NORMALS: mental status grossly normal Course 2 Vital Signs: Vital signs: Vital Signs Temperature 100.0 F H 02/20/24 15:34 Pulse Rate 89 02/20/24 16:00 Respiratory Rate 20 H 02/20/24 16:00 Blood Pressure 134/67 02/20/24 15:34 Pulse Oximetry 97 02/20/24 16:00 Oxygen Delivery Me thod Nasal Cannula 02/20/24 16:00 Oxygen Flow Rate 2 02/20/24 16:00 MDM - Back Pain/Injury Medical Decision Making Patient presented by ambulance for shortness of breath and some bilateral chronic lower extremity lymphedema, however his right leg had increased in swelling and pain recently and does have a history of cellulitis. Patient's family in room also notes he has a history of PE and is on Eliquis 5 mg twice a day. His complaint primarily was new shortness of breath, but believed it was because of his back pain taking his breath away. However on arrival he has required 2 to 4 L to maintain oxygenation above 90, this has persisted throughout his ED stay. Does not use oxygen at home and has no history of COPD or emphysema. His baseline and 2-hour troponin essentially nondiagnostic. EKG reviewed with physician showed sinus tachycardia with no acute ST segment changes. Chest x-ray unremarkable. Lab work was also essentially nondiagnostic including a negative respiratory panel, negative urinalysis, negative lactic acid, and essentially negative brain natruretic peptide. He had jumped and fever to 104 axillary despite being given 1 g of Tylenol here in the emergency department, so chest abdomen pelvis CTA obtained that showed questionable bibasilar atelectasis versus infiltrate, favoring infiltrate at this time due to his persistent fever and shortness of breath/hypoxia. No abdominal processes were noted. Spoke with family, asked if they are okay with coming into the hospital for further observation and workup, they agree at this time. I spoke with hospitalist, Dr. Flores, who agrees to accept the patient and is consulting them in the emergency department right now. Dr. Newton is putting in admit orders at this time. Labs 02/19/24 20:20 02/19/24 20:20 Radiology Impressions Chest X-Ray 02/19/24 20:29 IMPRESSION: No acute findings. Chest/Abdomen/Pelvis CTA 02/19/24 23:04 IMPRESSION: 1. Negative for pulmonary embolus. 2. Scattered subcentimeter short axis nonspecific mediastinal nodes. 3. Bibasilar atelectasis versus infiltrate. IMPRESSION: 1. Negative for acute inflammatory process in the abdomen or pelvis. 2. Hepatic steatosis. 3. Proximal renal artery atherosclerotic disease bilaterally with 70-80% luminal narrowing. 4. Right kidney nonobstructing renal calyceal stones. 5. Supraumbilical small hernia containing omentum and a small amount of nonspecific fluid. 6. Right hip arthroplasty changes. 7. Aortic atherosclerotic calcifications. Tibia/Fibula X-Ray 02/20/24 11:08 Impression: 1. Osteoarthritis right knee. 2. Tissue edema of the right leg. Laboratory Results WBC 7.11 10^3/uL (3.29-11.43) 02/19/24 20:20 RBC 4.18 10^6/uL (3.85-5.65) 02/19/24 20:20 Hgb 12.10 g/dL (11.27-16.99) 02/19/24 20:20 Hct 38.1 % (37-53) 02/19/24 20:20 MCV 91.1 fl (82-101) 02/19/24 20:20 MCH 28.9 pg (27-33) 02/19/24 20:20 MCHC 31.8 g/dL (30-55) 02/19/24 20:20 RDW 14.7 % (12.1-15.1) 02/19/24 20:20 Plt Count 152 10^3/cmm (157-399) L 02/19/24 20:20 MPV 11.3 fL (7.4-10.4) H 02/19/24 20:20 Neut % (Auto) 90.1 % 02/19/24 20:20 Lymph % (Auto) 4.9 % 02/19/24 20:20 Charles % (Auto) 4.5 % 02/19/24 20:20 Eos % (Auto) 0.1 % 02/19/24 20:20 Baso % (Auto) 0.1 % 02/19/24 20:20 Neut # (Auto) 6.40 10^3/uL (1.8-7.7) 02/19/24 20:20 Lymph # (Auto) 0.4 10^3/uL (0.8-4.8) L 02/19/24 20:20 Charles # (Auto) 0.3 10^3/uL (0.2-0.9) 02/19/24 20:20 Eos # (Auto) 0.0 10^3/uL (0.0-0.8) 02/19/24 20:20 Baso # (Auto) 0.0 10^3/uL (0.0-0.1) 02/19/24 20:20 Nucleated RBC % (auto) 0 % 02/19/24 20:20 Nucleated RBCs # 0.0 /100WBC 02/19/24 20:20 PT 14.40 SECONDS (12.1-14.9) 02/19/24 20:20 INR 1.09 (0.8-1.2) 02/19/24 20:20 APTT 33.6 SECONDS (23.9-36.7) 02/19/24 20:20 Sodium 141 mmol/L (136-145) 02/19/24 20:20 Potassium 4.1 mmol/L (3.5-5.1) 02/19/24 20:20 Chloride 103 mmol/L (98-107) 02/19/24 20:20 Carbon Dioxide 29 mmol/L (22-29) 02/19/24 20:20 Anion Gap 13.1 (5-19) 02/19/24 20:20 BUN 18 mg/dL (8-23) 02/19/24 20:20 Creatinine 0.7 mg/dL (0.7-1.2) 02/19/24 20:20 GFR Calculation 112.5 mL/min (90-130) 02/19/24 20:20 Glucose 122 mg/dL (65-115) H 02/19/24 20:20 Calculated Osmolality 295 mOsm/kg (285-295) 02/19/24 20:20 Lactic Acid 0.8 mmol/L (0.5-2.2) 02/19/24 20:20 Calcium 8.6 mg/dL (8.5-10.5) 02/19/24 20:20 Total Bilirubin 0.8 mg/dL (0.15-1.2) 02/19/24 20:20 AST 18 U/L (0-40) 02/19/24 20:20 ALT 16 U/L (0-41) 02/19/24 20:20 Alkaline Phosphatase 121 U/L (40-130) 02/19/24 20:20 Troponin T Baseline 27 ng/L (0-15) H 02/19/24 20:20 Troponin T 120 Minute 29.84 ng/L (0-15) H 02/19/24 22:54 Delta Troponin T 2.84 ABS# (0-10) 02/19/24 22:54 NT-Pro-B Natriuret Pep 243 pg/mL (0-125) H 02/19/24 20:20 Total Protein 6.5 g/dL (6.6-8.7) L 02/19/24 20:20 Albumin 4.3 g/dL (3.5-5.2) 02/19/24 20:20 Globulin 2.2 g/dL (1.3-4.6) 02/19/24 20:20 Urine Color Yellow (Yellow) 02/19/24 20:46 Urine Appearance Clear (CLEAR) 02/19/24 20:46 Urine pH 7.5 (5-7) 02/19/24 20:46 Ur Specific [place] 1.022 (1.005-1.030) 02/19/24 20:46 Urine Protein Trace (Negative) A 02/19/24 20:46 Urine Glucose (UA) Negative (Normal) 02/19/24 20:46 Urine Ketones Negative (Negative) 02/19/24 20:46 Urine Blood Negative (Negative) 02/19/24 20:46 Urine Nitrate Negative (Negative) 02/19/24 20:46 Urine Bilirubin Negative (Negative) 02/19/24 20:46 Urine Urobilinogen 1.0 mg/dL (Negative) 02/19/24 20:46 Ur Leukocyte Esterase Negative (Negative) 02/19/24 20:46 Urine RBC 0-2 /hpf (0-2) 02/19/24 20:46 Urine WBC 0-5 /hpf (0-5) 02/19/24 20:46 Ur Squamous Epith Cells 0-5 /hpf (0-5) 02/19/24 20:46 Amorphous Sediment Not Reportable 02/19/24 20:46 Urine Bacteria None seen /hpf (NONE) 02/19/24 20:46 Hyaline Casts 0-4 /lpf H 02/19/24 20:46 Adenovirus (PCR) Not detected (NOT DETECT) 02/19/24 21:00 C. pneumoniae DNA (PCR) Not detected (NOT DETECT) 02/19/24 21:00 Coronavirus 229E (PCR) Not detected (NOT DETECT) 02/19/24 21:00 Human Metapneumovir PCR Not detected (NOT DETECT) 02/19/24 21:00 Influenza A (H1) PCR Not detected (NOT DETECT) 02/19/24 21:00 Influ A (H1/09) PCR Not detected (NOT DETECT) 02/19/24 21:00 Influenza A (H3) PCR Not detected (NOT DETECT) 02/19/24 21:00 Influenza Type A (PCR) Not detected (NOT DETECT) 02/19/24 21:00 Influenza Type B (PCR) Not detected (NOT DETECT) 02/19/24 21:00 M. pneumoniae (PCR) Not detected (NOT DETECT) 02/19/24 21:00 Parainfluenza 1 (PCR) Not detected (NOT DETECT) 02/19/24 21:00 Parainfluenza 2 (PCR) Not detected (NOT DETECT) 02/19/24 21:00 Parainfluenza 3 (PCR) Not detected (NOT DETECT) 02/19/24 21:00 Parainfluenza 4 (PCR) Not detected (NOT DETECT) 02/19/24 21:00 RSV Type A (PCR) Not detected (NOT DETECT) 02/19/24 21:00 RSV Type B (PCR) Not detected (NOT DETECT) 02/19/24 21:00 Entero/Rhino (PCR) Not detected (NOT DETECT) 02/19/24 21:00 SARS-CoV-2 (PCR) Not detected (NOT DETECT) 02/19/24 21:00 All radiology interpretation(s) finalized by discharge Discharge Plan Discharge Patient Disposition: Admitted As Inpatient Admit Provider: Gordon Flores Clinical Impression: Hypoxemia, Pneumonia, Cellulitis Condition: Stable Coding Level of Care Code ED Nuclear Supervising Operator for Filiberto Mae
--- NOTE | 2024-02-20 01:15 | P.HP_ITS ---
Providers/Chief Complaint 2 Admitting Physician: Gordon Flores MD Primary Care Provider: Sunita Quiroga NP Chief Complaint: SOB, Low back pain History of Present Illness Smith Lopez is a 68 year old male lives at home with his Dariela and presented today due toacute onset shortness of breath. Patient states he has chronic low back pain, he thinks that his pain has been making him more short of breath. He has a history of lymphedema, notes that his right lower extremity has become more red and swollen recently. He does arrive febrile temp of 101.4, and reports feeling diaphoretic. Other than the lymphedema and some hypertension and hyperlipidemia, he has no pertinent past medical history to report such as COPD or CHF. He does not use oxygen regularly, though does arrive on 4 L of O2 to maintain 94 to 95%. He also notes feeling more tired recently. Patient tells me that in July he was sent to [facility] with sepsis and pulmonary embolism. He has been on Eliquis since that time patient has had lymphedema diagnosed although he is also on amlodipine baclofen and ibuprofen which can cause leg swelling. His Dariela states that she has not been doing the compression wraps due to open sores on the legs. He is taking furosemide at home but states it does not work Patient denies tobacco use ever he states he used to drink heavily for greater than 20 years at 12 pack a day. He quit 3 years ago but denies a history of cirrhosis. He wants DO NOT RESUSCITATE Review of Systems 2 Card: Reports: edema, dyspnea on exertion and orthopnea Musc: Reports: back pain and other (Restless legs requiring high dose ropinirole) Medications/Allergies Home Medications Medication Instructions Recorded Confirmed Last Taken Type BLOOD FLOW 7 1 cap PO DAILY 11/19/22 12/02/23 Unknown History curcumin-phosphatidylcholine 500 500 mg PO DAILY 11/19/22 12/02/23 03/26/23 History mg capsule baclofen 20 mg tablet 20 mg PO QID 03/26/23 12/19/23 03/26/23 12:00 History 20 furosemide 20 mg tablet 20 mg PO 2XD 03/26/23 12/19/23 03/24/23 12:00 History 20 ibuprofen 400 mg PO TID 03/26/23 12/02/23 03/26/23 History potassium chloride 20 mEq 20 meq PO DAILY 03/26/23 12/19/23 03/24/23 05:00 History tablet,extended release(part/cryst) 20 ropinirole 4 mg tablet See Rx Instructions .Route .COMPLEX 03/26/23 12/19/23 03/26/23 05:00 History simvastatin 20 mg tablet 20 mg PO BEDTIME 03/26/23 12/19/23 03/25/23 20:00 History gabapentin 800 mg tablet See Rx Instructions .Route 04/07/23 12/19/23 Unknown Rx .COMPLEX #300 tabs amlodipine 5 mg tablet 5 mg PO DAILY 10/13/23 12/19/23 Unknown History Allergies Allergy/AdvReac Type Severity Reaction Status Date / Time lisinopril Allergy Intermediate angioedema Verified 12/19/23 07:27 morphine Allergy Mild agitation Verified 12/19/23 07:27 and confusion PFSH Acute 2 PFSH: Medical History Hypertension Back pain Neck pain Hip pain Hyperlipidemia Surgical History H/O laminectomy History of hip replacement Family History Mother Dementia Hypertension Father Family history of premature coronary artery disease Social History Smoking and tobacco/nicotine status: never used tobacco/nicotine Alcohol intake: never Substance/Drug Use: never Lives independently: Yes Household members: spouse Marital status: service: No Current occupational status: disabled Do you think of yourself as: Straight/Heterosexual Current gender identity: Male Maddi/Druze: Uatsdin Vitals/I&O/Wt Last Vital Signs Temp 98.9 F 02/20/24 00:07 Pulse 95 02/20/24 00:51 Resp 20 H 02/19/24 21:15 BP 116/41 02/20/24 00:51 Pulse Ox 91 02/20/24 00:51 O2 Del Method Nasal Cannula 02/20/24 00:51 O2 Flow Rate 2 02/20/24 00:00 Weight last 48 hrs Weight 113.398 kg Physical Exam 2 Narrative: General Well-developed well-nourished obese male in no acute cardiopulmonary distress but requiring oxygen CV regular rate and rhythm Lungs crackles heard in both bases Abdomen positive bowel sounds soft nontender Calves 3+ edema bilateral legs right leg with shallow ulcerations but no odor or discharge Skin warm and dry except for right leg which has shallow ulcerations right dorsal toes also with abrasions Mentation alert and oriented x 3 Data 02/19/24 20:20 02/19/24 20:20 Micro: Microbiology 02/19/24 21:27 Blood Culture - Preliminary Blood SPECIMEN COLLECTED 02/19/24 21:27 Blood Culture - Preliminary Blood SPECIMEN COLLECTED A&P Assessment and plan (1) Cellulitis: Will ask for a skin culture. Cover with levofloxacin which should cover MRSA and strep. Treating also for pneumonia Qualifiers: Laterality: right Site of cellulitis: extremity Site of cellulitis of extremity: lower extremity Qualified Code(s): L03.115 - Cellulitis of right lower limb (2) Pneumonia: Chest x-ray mild cardiomegaly CT scan shows right lower lung infiltrate or atelectasis Qualifiers: Laterality: bilateral Lung location: lower lobe of lung Pneumonia type: due to unspecified organism Qualified Code(s): J18.9 - Pneumonia, unspecified organism (3) Lymphedema: Initiate diuresis with Bumex 1 mg twice a day IV and replace potassium 10 mill colons twice a day daily basic metabolic panel (4) Pulmonary embolism: Continue apixaban Qualifiers: Pulmonary embolism type: other Chronicity: acute Acute cor pulmonale presence: without acute cor pulmonale Qualified Code(s): I26.99 - Other pulmonary embolism without acute cor pulmonale Attestations 2 Medical Necessity Statement*: Patient with pneumonia and right lower extremity cellulitis anticipated to cross 2 midnights stay in the hospital Coding Level of Care Code 84094 Diagnoses Cellulitis L03.115 Laterality: right Site of cellulitis: extremity Site of cellulitis of extremity: lower extremity Pneumonia J18.9 Laterality: bilateral Lung location: lower lobe of lung Pneumonia type: due to unspecified organism Lymphedema I89.0 Other acute pulmonary embolism without acute cor pulmonale I26.99 Pulmonary embolism type: other Chronicity: acute Acute cor pulmonale presence: without acute cor pulmonale Time Spent (min) 70
[2024-02-20] MEDS: pramipexole 0.25 mg Tablet 0.5 MG PO ×2 (02:49→19:59)
[2024-02-20] MEDS: potassium chloride ER 10 mEq Tablet PO (02:49)
[2024-02-20] MEDS: levoFLOXacin 750 mg Tablet PO (02:50)
[2024-02-20] MEDS: bumetanide 0.25 mg/mL SDV 4 mL 1 MG IVP (02:50)
[2024-02-20 02:54] LABS: Troponin 5 6HR 35.13 ng/L (0-15); Troponin 5 6HR Delta 8.13 ng/L (0-12)
--- NOTE | 2024-02-20 03:03 | ECG_ITS ---
[facility] 2024-[facility]20 Pat Name: mSith Lopez Department: Room: 250 Gender: Male Program Supervisor: : 1955 Requested By: Urbano Dhaliwal Order Number: [id number] Brandon MD: Amie Seals M.D. Measurements Intervals [place] Rate: 100 P: 144 MS: 175 QRS: 133 QRSD: 102 T: 110 QT: 330 QTc: 427 Interpretive Statements SINUS TACHYCARDIA POSSIBLE RIGHT VENTRICULAR HYPERTROPHY Compared to ECG 02/19/2024 20:10:48 Incomplete right bundle-branch block no longer present Electronically Signed On 02-20-2024 12:23:34 CDT by Amie Seals M.D. [email or web address]
[2024-02-20] MEDS: acetaminophen 325 mg Tablet 650 MG PO ×2 (07:24→15:47)
[2024-02-20 08:36] LABS: C Reactive Protein 32.1 mg/L (0.0-4.9)
[2024-02-20 08:43] LABS: Procalcitonin 0.25 ng/mL (0-0.5)
--- NOTE | 2024-02-20 10:05 | PC.SOCIAL ---
IMM Update pg 2 of IMM Updated and reviewed w/ patient. Copy provided and copy dated, initialed and placed in chart.
[2024-02-20] MEDS: linezolid premix 600 MG/300 ML PREMIX 300 MG IV ×2 (10:28→19:59)
[2024-02-20] MEDS: gabapentin 400 mg Capsule 800 MG PO ×3 (10:29→19:59)
[2024-02-20] MEDS: piperacillin-tazobactam 3.375 GM in sodium chloride 0.9% (plus) 50 ML IV ×2 (10:29→15:47)
[2024-02-20] MEDS: apixaban 5 mg Tablet PO ×2 (10:29→18:03)
--- NOTE | 2024-02-20 11:08 | USCV_ITS ---
John Smith Age: 68 Gender: M : 1955 Exam Date: 02/20/2024 14:38 Ordering Phys: López Zaragoza MD Technologist: CT Exam [place] [facility] [place] Indication: PROCEDURES: The venous duplex Doppler examination of both lower extremities was performed in the standard fashion. Bilaterally, the common femoral, superficial femoral, profunda femoral, popliteal, posterior tibial, greater saphenous veins, and the peroneal trunk were identified and interrogated in the standard fashion. These veins were found to be easily compressible with spontaneous blood flow. No evidence of insufficiency or thrombus noted. FINDINGS: Normal 2-D Doppler and augmentation and compressibility throughout the lower extremity venous structures. Additional imaging through the proximal calf veins also reveals no thrombus. Limited evaluation of the greater saphenous vein is patent with no thrombus. Mild subcutaneous edema. Mildly reactive lymph nodes, right. CONCLUSIONS No DVT bilateral lower extremities. Dr. Sylvia Machado DO (Electronically Signed) Final Date: 20 February 2024 15:26 S
--- NOTE | 2024-02-20 11:08 | XR_ITS ---
WS: [id number] Left leg including the tibia and fibula, AP and lateral views, 02/20/2024 Clinical Data: swelling pain Comparison: None. Findings: No fractures or dislocations are seen. The tibia and fibula are intact. The soft tissues show minimal tissue edema.. There is osteoarthritis of the left knee. Vascular calcification is seen. XR/XR tibia fibula LT 2V [id number] Impression: 1. Osteoarthritis of the left knee. 2. Edema of the subcutaneous tissue of the left leg.
--- NOTE | 2024-02-20 11:08 | XR_ITS ---
WS: [id number] Right leg including the tibia and fibula, AP and lateral views, 02/20/2024 Clinical Data: swelling pain Comparison: None. Findings: No fractures or dislocations are seen. The tibia and fibula are intact. There is edema of the soft ti ssues of the leg. There is osteoarthritis of the right knee. XR/XR tibia fibula RT 2V [id number] Impression: 1. Osteoarthritis right knee. 2. Tissue edema of the right leg.
[2024-02-20] MEDS: budesonide 0.5 mg/2 mL Neb INHALATION ×2 (11:35→20:38)
[2024-02-20] MEDS: ipratropium-albuterol 3 mL Neb INHALATION ×3 (11:35→20:38)
--- NOTE | 2024-02-20 11:49 | P.PN_ITS ---
Subjective 2 Subjective: Patient was seen this morning, he is febrile, temperature 102.7 overnight, complains of bilateral extremity pain, swelling, tenderness Vitals/I&O/Wt Last Vital Signs Temp 99.9 F H 02/20/24 11:20 Pulse 80 02/20/24 11:37 Resp 18 02/20/24 11:37 BP 117/60 02/20/24 11:20 Pulse Ox 93 02/20/24 11:37 O2 Del Method Nasal Cannula 02/20/24 11:37 O2 Flow Rate 2 02/20/24 11:37 02/19/24 02/20/24 02/20/24 22:59 06:59 14:59 Intake Total 540 / 540 Balance 540 / 540 Weight last 48 hrs Weight 76.884 kg Weight 113.398 kg Physical Exam 2 Const: COMMON NORMALS: no acute distress and patient oriented x3 Resp: COMMON NORMALS: normal respiratory effort, No retractions, No use of accessory muscles and clear to auscultation bilaterally AUSCULTATION: clear to auscultation bilaterally Cardio: COMMON NORMALS: regular rate, regular rhythm, S1 normal heart sound present and S2 normal heart sound present RATE: regular rate RHYTHM: r egular rhythm HEART SOUNDS: S1 normal heart sound present and S2 normal heart sound present GI: COMMON NORMALS: Normal to inspection, nondistended, normoactive bowel sounds present and non-tender Extremity: NARRATIVE EXTREMITY EXAM: Bilateral lower extremity, erythema, swelling, tenderness stretching from the ankle all the way up to just below the knee just to Neuro: COMMON NORMALS: patient oriented x3 Psych: COMMON NORMALS: mental status grossly normal Data 02/19/24 20:20 02/19/24 20:20 Micro: Microbiology 02/19/24 21:27 Blood Culture - Preliminary Blood SPECIMEN COLLECTED 02/19/24 21:27 Blood Culture - Preliminary Blood SPECIMEN COLLECTED A&P Assessment and plan (1) Cellulitis: Qualifiers: Laterality: right Site of cellulitis: extremity Site of cellulitis of extremity: lower extremity Qualified Code(s): L03.115 - Cellulitis of right lower limb (2) Pneumonia: Qualifiers: Laterality: bilateral Lung location: lower lobe of lung Pneumonia type: due to unspecified organism Qualified Code(s): J18.9 - Pneumonia, unspecified organism (3) Lymphedema: (4) Pulmonary embolism: Qualifiers: Acute cor pulmonale presence: without acute cor pulmonale Chronicity: a cute Pulmonary embolism type: other Qualified Code(s): I26.99 - Other pulmonary embolism without acute cor pulmonale Plan Cellulitis, bilateral lower extremities -Febrile -Erythema, swelling, tenderness extending from the ankles up to just below the knee -Ultrasound bilateral lower extremity ? X-ray of bilateral extremities ? Expand antibiotic coverage to Zyvox ? Zosyn ? Follow blood cultures Pneumonia, hypoxia requiring 2 L # Continue Zyvox, Zosyn Follow blood cultures as above Eliquis for DVT prophylaxis This patient is DNR/DNI Attestations 2 Medical Necessity Statement*: Patient requires hospitalization, inpatient, greater than 2 midnights, for cellulitis Diagnoses Cellulitis L03.115 Laterality: right Site of cellulitis: extremity Site of cellulitis of extremity: lower extremity Pneumonia J18.9 Laterality: bilateral Lung location: lower lobe of lung Pneumonia type: due to unspecified organism Lymphedema I89.0 Other acute pulmonary embolism without acute cor pulmonale I26.99 Acute cor pulmonale presence: without acute cor pulmonale Chronicity: acute Pulmonary embolism type: other
--- NOTE | 2024-02-20 12:44 | PC.CHAP ---
Pastoral Care Encounter/Spiritual Assessment Type of Contact [] Declined dormitory supervisor visit [] Patient/Family/Request visit [] Outpatient visit [] Follow-up visit [] Physician referral [] Code/Alert [x] Routine visit [] Staff referral [] Actively dying [] Patient sleeping [] Family support [] [] Out of room [] Palliative care [] [] Receiving care in room [] Pre-surgical visit [] Trauma [] Long length of stay [] ICU visit [] Other: Relational/Emotional Strength [x] Patient feels connected with others/family/visitors/staff [] Distress [] Loneliness/isolation [] Abandonment Spirituality of Patient [x] Person of Maddi [] Attends Restorationism of their Maddi [x] Believes in Prayer [] Reads Bible or Presybeterian materials [] There are Spiritual issues to be addressed Certified [employer] Interventions [x] Prayer [x] Active listening [x] Non-anxious presence [] Spiritual/emotional support [] Crisis/trauma care [] Spiritual counseling [] Bereavement support [] Provided bereavement packet [] Provided Bible/devotional materials [] Provided toy/stuffed animal, coloring book to patient or family member [] Provided Communion [] Anointing/[place] [] Salvation [] Completed spiritual assessment [] Other: Impact on Illness or Injury [] Angry [] Fearful [] Anxious [] Often cries [] Exhaustion [] Unable to work [] Unable to attend jewish [] Unable to walk/stand [] Unable to read [] Unable to drive [] Unable to eat/drink [] Unable to sleep [] Unable to be with family [] Patient intubated [] Other: Summary Time spent with patient Prayer +st
[2024-02-20] MEDS: HYDROcodone-acetaminophen 5-325 mg Tablet 1 TAB PO (15:58)
--- NOTE | 2024-02-20 16:37 | PC.NURSE ---
asked me to help wrap patient's legs in lymphodema wraps but I did not see an order to do so I asked Dr. Zaragoza if I should help her and he said no due to cellulitis. informed.
[2024-02-20] MEDS: atorvastatin 40 mg Tablet 20 MG PO (20:00)
[2024-02-21] VITALS (16 sets, daily range): BP systolic 106–159; BP diastolic 55–76; PULSE 67–88; RESP 16–25; TEMP 36.7–38.2; O2SAT 91–96
[2024-02-21] MEDS: ipratropium-albuterol 3 mL Neb INHALATION ×7 (00:04→23:59)
[2024-02-21] MEDS: acetaminophen 325 mg Tablet 650 MG PO (00:23)
[2024-02-21] MEDS: piperacillin-tazobactam 3.375 GM in sodium chloride 0.9% (plus) 50 ML IV ×3 (00:24→16:07)
[2024-02-21 04:48] LABS: Basophils % 0.2 %; Hematocrit 30.1 % (37-53); Lymphocytes # 0.5 10^3/uL (0.8-4.8); Mean Corpuscular HGB Conc 31.2 g/dL (30-55); Mean Corpuscular Hemoglobin 28.9 pg (27-33); Mean Corpuscular Volume 92.6 fl (82-101); Mean Platelet Volume 11.9 fL (7.4-10.4); Monocytes # 0.3 10^3/uL (0.2-0.9); Monocytes % 4.7 %; Neutrophils # 5.13 10^3/uL (1.8-7.7); Neutrophils % 86.8 %; Nucleated Red Blood Cells % 0 %; Platelet Count 105 10^3/cmm (157-399); Red Blood Count 3.25 10^6/uL (3.85-5.65); Red Cell Distribution Width 15.5 % (12.1-15.1); White Blood Count 5.91 10^3/uL (3.29-11.43)
[2024-02-21 05:25] LABS: Anion Gap 12.4 (5-19); Blood Urea Nitrogen 28 mg/dL (8-23); Calcium 7.8 mg/dL (8.5-10.5); Carbon Dioxide 25 mmol/L (22-29); Chloride 99 mmol/L (98-107); Creatinine Clr Calc Pharmacy 52.2553; Glomerular Filtration Rate 50.5 mL/min (90-130); Glucose 129 mg/dL (65-115); Osmolality Calculated 283 mOsm/kg (285-295); Phosphorus 3.6 mg/dL (2.5-4.5); Potassium 3.4 mmol/L (3.5-5.1); Sodium 133 mmol/L (136-145)
[2024-02-21] MEDS: budesonide 0.5 mg/2 mL Neb INHALATION ×2 (08:16→20:19)
[2024-02-21] MEDS: apixaban 5 mg Tablet PO ×2 (08:24→17:52)
[2024-02-21] MEDS: gabapentin 400 mg Capsule 800 MG PO ×3 (08:24→21:09)
[2024-02-21 08:45] LABS: LAB Peripheral Smear Sent for Review
[2024-02-21 08:47] LABS: Erythrocyte Sedimentation Rate 27 mm/hr (0-10)
[2024-02-21 08:57] LABS: C Reactive Protein 124.2 mg/L (0.0-4.9)
[2024-02-21 09:01] LABS: Creatine Phosphokinase 718 U/L (39-308)
[2024-02-21 09:05] LABS: Procalcitonin 0.49 ng/mL (0-0.5)
--- NOTE | 2024-02-21 09:47 | PHA.VACGOAL ---
Vancomycin Goal - Goal Vancomycin Indication:: Other (CELLULITIS) - Therapy Current therapy:: Pip/Tazo (3.375 GM IVPB Q8H) Day of therpy:: Day [1]of [] . Actual body weight (kg): 81.238 kg [place] body weight: 66.1 KG Dosing weight (kg): 81.238 KG - Data Labs: WBC 5.91 10^3/uL (3.29-11.43) 02/21/24 03:34 RBC 3.25 10^6/uL (3.85-5.65) L 02/21/24 03:34 Hgb 9.40 g/dL (11.27-16.99) L 02/21/24 03:34 Hct 30.1 % (37-53) L 02/21/24 03:34 MCV 92.6 fl (82-101) 02/21/24 03:34 MCH 28.9 pg (27-33) 02/21/24 03:34 MCHC 31.2 g/dL (30-55) 02/21/24 03:34 RDW 15.5 % (12.1-15.1) H 02/21/24 03:34 Sodium 133 mmol/L (136-145) L 02/21/24 03:34 Potassium 3.4 mmol/L (3.5-5.1) L 02/21/24 03:34 Chloride 99 mmol/L (98-107) 02/21/24 03:34 Carbon Dioxide 25 mmol/L (22-29) 02/21/24 03:34 Anion Gap 12.4 (5-19) 02/21/24 03:34 BUN 28 mg/dL (8-23) H 02/21/24 03:34 Creatinine 1.4 mg/dL (0.7-1.2) H 02/21/24 03:34 GFR Calculation 50.5 mL/min (90-130) L 02/21/24 03:34 Last dialysis session:: N/A Drug administration history:: Medications Piperacillin Sod/Tazobactam (Sod 3.375 gm/ Sodium Chloride) 50 mls @ 12.5 mls/hr IV Q8H [facility]; Protocol Last Admin: 02/21/24 08:24 Dose: 12.5 mls/hr Vancomycin HCl 1,000 mg/ (Sodium Chloride) 250 mls @ 250 mls/hr IV ONCE ONE Stop: 02/21/24 10:44 Vancomycin HCl 750 mg/ Sodium (Chloride) 250 mls @ 250 mls/hr IV Q12H [facility] Laboratory Tests 02/21/24 03:34 Creatinine 1.4 H Treatment plan:: new consult Regimen:: Vancomycin 1 gm load with 750 mg IVPB Q12H Follow up:: Pharmacy will monitor daily, SCr daily with am labs
[2024-02-21] MEDS: sodium chloride 0.9% 1,000 ML 75 ML IV ×2 (10:48→21:14)
[2024-02-21] MEDS: VANCOMYCIN ADD-Vantage 1,000 MG in 0.9% NaCl ADD-Vantage 250 ML 250 MG IV (10:49)
--- NOTE | 2024-02-21 13:49 | P.PN_ITS ---
Subjective 2 Subjective: Patient was seen this morning, he did have a fever of 102 last night, he feels better this morning his lower extremity pain is improving, no nausea, no vomiting, no lightheadedness, no dizziness, no shortness of breath Vitals/I&O/Wt Last Vital Signs Temp 98.0 F 02/21/24 12:00 Pulse 67 02/21/24 12:00 Resp 16 02/21/24 12:00 BP 111/63 02/21/24 07:50 Pulse Ox 95 02/21/24 12:00 O2 Del Method Room Air 02/21/24 12:00 O2 Flow Rate 2 02/21/24 08:00 02/20/24 02/21/24 02/21/24 22:59 06:59 14:59 Intake Total 850 / 1920 110 / 2030 780 / 780 Balance 850 / 1920 110 / 2030 780 / 780 Weight last 48 hrs Weight 81.238 kg Weight 76.884 kg Weight 113.398 kg Physical Exam 2 Const: COMMON NORMALS: no acute distress and patient oriented x3 Resp: COMMON NORMALS: normal respiratory effort, No retractions, No use of accessory muscles and clear to auscultation bilaterally AUSCULTATION: clear to auscultation bilaterally Cardio: COMMON NORMALS: regular rate, regular rhythm, S1 normal heart sound present and S2 normal heart sound present RATE: regular rate RHYTHM: r egular rhythm HEART SOUNDS: S1 normal heart sound present and S2 normal heart sound present GI: COMMON NORMALS: Normal to inspection, nondistended, normoactive bowel sounds present and non-tender Extremity: NARRATIVE EXTREMITY EXAM: Bilateral lower extremities, erythema, swelling, tenderness, from just below the knee joint, just above the ankle joint ? 1+ pitting edema Neuro: COMMON NORMALS: patient oriented x3 Psych: COMMON NORMALS: mental status grossly normal Data 02/21/24 03:34 02/21/24 03:34 Micro: Microbiology 02/20/24 02:04 Gram Stain - Final Leg - #1 Wound Culture - Preliminary Gram Negative Rods 02/19/24 21:27 Blood Culture - Preliminary Blood NEGATIVE TO DATE 02/19/24 21:27 Blood Culture - Preliminary Blood NEGATIVE TO DATE A&P Assessment and plan (1) Cellulitis: Qualifiers: Laterality: right Site of cellulitis: extremity Site of cellulitis of extremity: lower extremity Qualified Code(s): L03.115 - Cellulitis of right lower limb (2) Pneumonia: Qualifiers: Laterality: bilateral Lung location: lower lobe of lung Pneumonia type: due to unspecified organism Qualified Code(s): J18.9 - Pneumonia, unspecified organism (3) Lymphedema: (4) Pulmonary embolism: Qualifiers: Pulmonary embolism type: other Chronicity: acute Acute cor pulmonale presence: without acute cor pulmonale Qualified Code(s): I26.99 - Other pulmonary embolism without acute cor pulmonale (5) Pancytopenia: (6) Acute kidney injury: (7) Rhabdomyolysis: Plan Cellulitis, bilateral lower extremities -Febrile -Erythema, swelling, tenderness extending from the ankles up to just below the knee -Ultrasound bilateral lower extremity no acute DVT ? X-ray of bilateral extremities no acute findings ? Stop Zyvox, switch to vancomycin ? Zosyn ? Follow blood cultures ? Follow-up tissue cultures Acute kidney injury, creatinine 1.4, -Concerning for rhabdomyolysis -Possible contrast-induced nephropathy -IV fluids normal saline at 75 cc an hour -Could be related to Zyvox, which has been discontinued Pancytopenia -Could be related to cellulitis, pneumonia and Zyvox -Zyvox has been stopped -Switch to vancomycin -Repeat CBC and BMP this afternoon Pneumonia, hypoxia requiring 2 L # Continue vancomycin, Zosyn Follow blood cultures as above Eliquis for DVT prophylaxis This patient is DNR/DNI Attestations 2 Medical Necessity Statement*: Patient requires hospitalization for cellulitis bilateral extremities, HARMONY, pancytopenia, pneumonia Diagnoses Cellulitis L03.115 Laterality: right Site of cellulitis: extremity Site of cellulitis of extremity: lower extremity Pneumonia J18.9 Laterality: bilateral Lung location: lower lobe of lung Pneumonia type: due to unspecified organism Lymphedema I89.0 Other acute pulmonary embolism without acute cor pulmonale I26.99 Pulmonary embolism type: other Chronicity: acute Acute cor pulmonale presence: without acute cor pulmonale Pancytopenia D61.818 Acute kidney injury N17.9 Rhabdomyolysis M62.82
[2024-02-21 16:37] LABS: Basophils % 0.2 %; Lymphocytes # 0.7 10^3/uL (0.8-4.8); Lymphocytes % 15.1 %; Mean Corpuscular HGB Conc 31.6 g/dL (30-55); Mean Corpuscular Hemoglobin 28.9 pg (27-33); Mean Corpuscular Volume 91.4 fl (82-101); Mean Platelet Volume 12.1 fL (7.4-10.4); Monocytes # 0.4 10^3/uL (0.2-0.9); Monocytes % 8.7 %; Neutrophils # 3.46 10^3/uL (1.8-7.7); Neutrophils % 75.6 %; Nucleated Red Blood Cells % 0 %; Platelet Count 111 10^3/cmm (157-399); Red Blood Count 3.39 10^6/uL (3.85-5.65); Red Cell Distribution Width 15.2 % (12.1-15.1); White Blood Count 4.58 10^3/uL (3.29-11.43)
[2024-02-21 17:24] LABS: Anion Gap 15.9 (5-19); Blood Urea Nitrogen 26 mg/dL (8-23); Calcium 7.7 mg/dL (8.5-10.5); Carbon Dioxide 23 mmol/L (22-29); Chloride 98 mmol/L (98-107); Creatinine Clr Calc Pharmacy 73.1574; Glomerular Filtration Rate 74.5 mL/min (90-130); Glucose 144 mg/dL (65-115); Osmolality Calculated 283 mOsm/kg (285-295); Potassium 3.9 mmol/L (3.5-5.1); Sodium 133 mmol/L (136-145)
--- NOTE | 2024-02-21 18:24 | PC.NURSE ---
pt requested both of his legs be left open to air, removed dressing per pts request. ble left open to air
[2024-02-21] MEDS: pramipexole 0.25 mg Tablet 0.5 MG PO (21:09)
[2024-02-21] MEDS: atorvastatin 40 mg Tablet 20 MG PO (21:09)
[2024-02-21] MEDS: HYDROcodone-acetaminophen 5-325 mg Tablet 1 TAB PO (21:10)
[2024-02-21] MEDS: VANCOMYCIN ADD-Vantage 750 MG in 0.9% NaCl ADD-Vantage 250 ML 250 MG IV (21:10)
[2024-02-22] VITALS (14 sets, daily range): BP systolic 125–174; BP diastolic 58–96; PULSE 73–88; RESP 16–25; TEMP 36.7–37.2; O2SAT 91–97
[2024-02-22] MEDS: piperacillin-tazobactam 3.375 GM in sodium chloride 0.9% (plus) 50 ML IV ×3 (00:16→16:15)
[2024-02-22] MEDS: ipratropium-albuterol 3 mL Neb INHALATION ×6 (03:51→23:39)
[2024-02-22 05:37] LABS: Basophils % 0.2 %; Eosinophils % 0.5 %; Hematocrit 30.3 % (37-53); Lymphocytes # 0.8 10^3/uL (0.8-4.8); Mean Corpuscular HGB Conc 31.4 g/dL (30-55); Mean Corpuscular Hemoglobin 28.5 pg (27-33); Monocytes # 0.4 10^3/uL (0.2-0.9); Neutrophils % 69.1 %; Nucleated Red Blood Cells % 0 %; Platelet Count 104 10^3/cmm (157-399); Red Blood Count 3.33 10^6/uL (3.85-5.65); Red Cell Distribution Width 15.3 % (12.1-15.1)
[2024-02-22 05:54] LABS: Anion Gap 14.8 (5-19); Blood Urea Nitrogen 21 mg/dL (8-23); Calcium 7.6 mg/dL (8.5-10.5); Carbon Dioxide 24 mmol/L (22-29); Chloride 103 mmol/L (98-107); Creatinine Clr Calc Pharmacy 90.3431; Glomerular Filtration Rate 96.4 mL/min (90-130); Glucose 103 mg/dL (65-115); Magnesium 2.1 mg/dL (1.7-2.3); Osmolality Calculated 289 mOsm/kg (285-295); Potassium 3.8 mmol/L (3.5-5.1); Sodium 138 mmol/L (136-145)
[2024-02-22 06:04] LABS: Creatine Phosphokinase 404 U/L (39-308)
[2024-02-22] MEDS: budesonide 0.5 mg/2 mL Neb INHALATION ×2 (08:00→20:08)
[2024-02-22] MEDS: apixaban 5 mg Tablet PO ×2 (09:03→17:02)
[2024-02-22] MEDS: gabapentin 400 mg Capsule 800 MG PO ×3 (09:03→21:07)
[2024-02-22] MEDS: VANCOMYCIN ADD-Vantage 750 MG in 0.9% NaCl ADD-Vantage 250 ML 250 MG IV ×2 (11:05→22:58)
[2024-02-22 11:26] LABS: C.Diff PCR (Lab) NEGATIVE (Negative)
--- NOTE | 2024-02-22 15:07 | P.PN_ITS ---
Subjective 2 Subjective: Patient was seen this morning, he does tell me that his erythema of his bilateral shins have significantly improved but persist to some degree, no fevers, no chills, no cough, he does have wheezing on examination, did have an episode of diarrhea this morning Vitals/I&O/Wt Last Vital Signs Temp 98.3 F 02/22/24 11:49 Pulse 88 02/22/24 11:49 Resp 16 02/22/24 11:49 BP 136/70 02/22/24 11:49 Pulse Ox 93 02/22/24 11:49 O2 Del Method Nasal Cannula 02/22/24 11:49 O2 Flow Rate 2 02/22/24 11:12 02/22/24 02/22/24 02/22/24 06:59 14:59 22:59 Intake Total 120 / 120 Balance 120 / 120 Weight last 48 hrs Weight 79.061 kg Weight 81.238 kg Physical Exam 2 Const: COMMON NORMALS: no acute distress and patient oriented x3 Resp: COMMON NORMALS: normal respiratory effort, No retractions, No use of accessory muscles and clear to auscultation bilaterally AUSCULTATION: clear to auscultation bilaterally Cardio: COMMON NORMALS: regular rate, regular rhythm, S1 normal heart sound present and S2 normal heart sound present RATE: regular rate RHYTHM: r egular rhythm HEART SOUNDS: S1 normal heart sound present and S2 normal heart sound present GI: COMMON NORMALS: Normal to inspection, nondistended, normoactive bowel sounds present and non-tender Extremity: COMMON NORMALS: no pedal edema Neuro: COMMON NORMALS: patient oriented x3 Psych: COMMON NORMALS: mental status grossly normal Skin: NARRATIVE SKIN EXAM: Erythema bilateral shins significantly improved Data 02/22/24 04:17 02/22/24 04:17 Micro: Microbiology 02/20/24 02:04 Gram Stain - Final Leg - #1 Wound Culture - Preliminary Serratia marcescens Coag positive Staphylococcus A&P Assessment and plan (1) Cellulitis: Qualifiers: Laterality: right Site of cellulitis: extremity Site of cellulitis of extremity: lower extremity Qualified Code(s): L03.115 - Cellulitis of right lower limb (2) Pneumonia: Qualifiers: Laterality: bilateral Lung location: lower lobe of lung Pneumonia type: due to unspecified organism Qualified Code(s): J18.9 - Pneumonia, unspecified organism (3) Lymphedema: (4) Pulmonary embolism: Qualifiers: Pulmonary embolism type: other Chronicity: acute Acute cor pulmonale presence: without acute cor pulmonale Qualified Code(s): I26.99 - Other pulmonary embolism without acute cor pulmonale (5) Pancytopenia: (6) Acute kidney injury: (7) Rhabdomyolysis: Plan Cellulitis, bilateral lower extremities -Febrile -Erythema, swelling, tenderness extending from the ankles up to just below the knee -Ultrasound bilateral lower extremity no acute DVT ? X-ray of bilateral extremities no acute findings ? vancomycin ? Zosyn ? Follow blood cultures ? Follow-up tissue cultures Acute kidney injury, resolved -Concerning for rhabdomyolysis -Possible contrast-induced nephropathy -Fluids stopped -Could be related to Zyvox, which has been discontinued Pancytopenia, resolving -Could be related to cellulitis, pneumonia and Zyvox -Zyvox has been stopped -Switch to vancomycin Pneumonia, hypoxia requiring 2 L # Continue vancomycin, Zosyn Follow blood cultures as above Eliquis for DVT prophylaxis This patient is DNR/DNI Attestations 2 Medical Necessity Statement*: Patient requires hospitalization for cellulitis bilateral extremity, pneumonia requiring IV antibiotics will consider Lasix based on clinical progress Diagnoses Cellulitis L03.115 Laterality: right Site of cellulitis: extremity Site of cellulitis of extremity: lower extremity Pneumonia J18.9 Laterality: bilateral Lung location: lower lobe of lung Pneumonia type: due to unspecified organism Lymphedema I89.0 Other acute pulmonary embolism without acute cor pulmonale I26.99 Pulmonary embolism type: other Chronicity: acute Acute cor pulmonale presence: without acute cor pulmonale Pancytopenia D61.818 Acute kidney injury N17.9 Rhabdomyolysis M62.82
[2024-02-22] MEDS: HYDROcodone-acetaminophen 5-325 mg Tablet 1 TAB PO (21:07)
[2024-02-22] MEDS: pramipexole 0.25 mg Tablet 0.5 MG PO (21:07)
[2024-02-22] MEDS: atorvastatin 40 mg Tablet 20 MG PO (21:07)
[2024-02-22 21:31] LABS: Vancomycin Trough 6.5 ug/mL (10-15)
[2024-02-23] VITALS (8 sets, daily range): BP systolic 132–159; BP diastolic 59–81; PULSE 71–96; RESP 16–21; TEMP 36.7–37.4; O2SAT 91–92
[2024-02-23] MEDS: piperacillin-tazobactam 3.375 GM in sodium chloride 0.9% (plus) 50 ML IV ×2 (00:15→07:49)
[2024-02-23] MEDS: ipratropium-albuterol 3 mL Neb INHALATION ×4 (03:12→15:12)
[2024-02-23] MEDS: HYDROcodone-acetaminophen 5-325 mg Tablet 1 TAB PO (03:48)
[2024-02-23 04:37] LABS: Basophils % 0.2 %; Eosinophils % 0.5 %; Hematocrit 29.7 % (37-53); Lymphocytes # 0.7 10^3/uL (0.8-4.8); Lymphocytes % 15.4 %; Mean Corpuscular Hemoglobin 29.1 pg (27-33); Mean Corpuscular Volume 91.1 fl (82-101); Monocytes # 0.5 10^3/uL (0.2-0.9); Monocytes % 10.5 %; Neutrophils # 3.14 10^3/uL (1.8-7.7); Neutrophils % 73.2 %; Nucleated Red Blood Cells % 0 %; Platelet Count 111 10^3/cmm (157-399); Red Blood Count 3.26 10^6/uL (3.85-5.65); Red Cell Distribution Width 14.8 % (12.1-15.1); White Blood Count 4.29 10^3/uL (3.29-11.43)
[2024-02-23 04:54] LABS: Anion Gap 14.8 (5-19); Blood Urea Nitrogen 14 mg/dL (8-23); Calcium 7.8 mg/dL (8.5-10.5); Carbon Dioxide 23 mmol/L (22-29); Chloride 105 mmol/L (98-107); Creatinine Clr Calc Pharmacy 90.5043; Glomerular Filtration Rate 112.5 mL/min (90-130); Glucose 110 mg/dL (65-115); Magnesium 2.1 mg/dL (1.7-2.3); Osmolality Calculated 289 mOsm/kg (285-295); Potassium 3.8 mmol/L (3.5-5.1); Sodium 139 mmol/L (136-145)
[2024-02-23 05:04] LABS: Creatine Phosphokinase 404 U/L (39-308)
[2024-02-23] MEDS: VANCOMYCIN ADD-Vantage 750 MG in 0.9% NaCl ADD-Vantage 250 ML 250 MG IV ×2 (06:19→22:44)
[2024-02-23] MEDS: apixaban 5 mg Tablet PO ×2 (07:49→17:12)
[2024-02-23] MEDS: gabapentin 400 mg Capsule 800 MG PO ×3 (07:49→20:29)
[2024-02-23] MEDS: budesonide 0.5 mg/2 mL Neb INHALATION (08:02)
--- NOTE | 2024-02-23 09:22 | P.DS_ITS ---
Discharge Providers Date of Admission: 02/20/24 01:02 Date of Discharge: February 23, 2024 Attending Provider at Admission: Gordon Flores MD Attending Provider at Discharge: López Zaragoza MD Primary Care Provider: Sunita Quiroga NP Diagnoses at Discharge Discharge Diagnosis (1) Cellulitis: Status: Acute Qualifiers: Laterality: right Site of cellulitis: extremity Site of cellulitis of extremity: lower extremity Qualified Code(s): L03.115 - Cellulitis of right lower limb (2) Pneumonia: Status: Acute Qualifiers: Laterality: bilateral Lung location: lower lobe of lung Pneumonia type: due to unspecified organism Qualified Code(s): J18.9 - Pneumonia, unspecified organism (3) Lymphedema: Status: Acute (4) Pulmonary embolism: Status: Acute Qualifiers: Pulmonary embolism type: other Chronicity: acute Acute cor pulmonale presence: without acute cor pulmonale Qualified Code(s): I26.99 - Other pulmonary embolism without acute cor pulmonale (5) Pancytopenia: Status: Acute (6) Acute kidney injury: Status: Acute (7) Rhabdomyolysis: Status: Acute Reason for Visit Reason for Visit: SOB, Low back pain Hospital Course Hospital Course This is a 68-year-old male, with a past medical hypertension hyperlipidemia, history of PE on Eliquis who presents [facility] for shortness of breath lower extremity edema For his cellulitis and bilateral extremity edema, febrile, requiring IV antibiotics, blood cultures so far unremarkable, remains afebrile for the last 48 hours, discharged on p.o. antibiotics Patient's hospitalization was complicated by HARMONY, concern for rhabdomyolysis, possible contrast-induced nephropathy, possibly side effect of Zyvox. Medications were stopped, transition to vancomycin, creatinine on discharge is 0.7 Pancytopenia, likely related to cellulitis, pneumonia, Zyvox. Zyvox as well as switch to vancomycin, pancytopenia has improved on discharge, at follow-up with primary care repeat CBC as outpatient Pneumonia requiring 2 L, received broad-spectrum antibody therapy, discharged on p.o. antibiotics Physical Exam Const: COMMON NORMALS: no acute distress and patient oriented x3 Resp: COMMON NORMALS: normal respiratory effort, No retractions, No use of accessory muscles and clear to auscultation bilaterally AUSCULTATION: clear to auscultation bilaterally Cardio: COMMON NORMALS: regular rate, regular rhythm, S1 normal heart sound present and S2 normal heart sound present RATE: regular rate RHYTHM: regular rhythm HEART SOUNDS: S1 normal heart sound present and S2 normal heart sound present GI: COMMON NORMALS: Normal to inspection, nondistended, normoactive bowel sounds present and non-tender Extremity: NARRATIVE EXTREMITY EXAM: Area of erythema, bilateral shins, significantly resolved, multiple superficial skin abrasions wounds, all in various stages of healing, improving Neuro: COMMON NORMALS: patient oriented x3 Psych: COMMON NORMALS: mental status grossly normal Discharge Data Studies Completed and Pending Completed Studies During Hospitalization Category Date Time Status CT ang ches abdpel [id number] Stat Cat Scan 02/19/24 23:04 Completed XR chest 1V portable [id number] Stat Exams 02/19/24 20:29 Completed XR tibia fibula LT 2V [id number] Routine Exams 02/20/24 11:08 Completed XR tibia fibula RT 2V [id number] Routine Exams 02/20/24 11:08 Completed US venous duplex lower extremity bilat [CV venous Ultrasound 02/20/24 11:08 [place] [id number]] Routine Pending at discharge Category Date Time Status Blood Culture Stat Lab 02/19/24 21:27 Results Creatine Phosphokinase AM LABS Lab 02/24/24 04:00 Ordered Vancomycin Trough Timed Lab 02/24/24 06:00 Ordered Wound Culture and Gram Stain Stat Lab 02/20/24 02:04 Results Radiology Impressions Chest X-Ray 02/19/24 20:29 IMPRESSION: No acute findings. Chest/Abdomen/Pelvis CTA 02/19/24 23:04 IMPRESSION: 1. Negative for pulmonary embolus. 2. Scattered subcentimeter short axis nonspecific mediastinal nodes. 3. Bibasilar atelectasis versus infiltrate. IMPRESSION: 1. Negative for acute inflammatory process in the abdomen or pelvis. 2. Hepatic steatosis. 3. Proximal renal artery atherosclerotic disease bilaterally with 70-80% luminal narrowing. 4. Right kidney nonobstructing renal calyceal stones. 5. Supraumbilical small hernia containing omentum and a small amount of nonspecific fluid. 6. Right hip arthroplasty changes. 7. Aortic atherosclerotic calcifications. Tibia/Fibula X-Ray 02/20/24 11:08 Impression: 1. Osteoarthritis right knee. 2. Tissue edema of the right leg. Laboratory Results WBC 4.29 10^3/uL (3.29-11.43) 02/23/24 03:29 RBC 3.26 10^6/uL (3.85-5.65) L 02/23/24 03:29 Hgb 9.50 g/dL (11.27-16.99) L 02/23/24 03:29 Hct 29.7 % (37-53) L 02/23/24 03:29 MCV 91.1 fl (82-101) 02/23/24 03: MCH 29.1 pg (27-33) 02/23/24 03: MCHC 32.0 g/dL (30-55) 02/23/24 03: RDW 14.8 % (12.1-15.1) 02/23/24 03:29 Plt Count 111 10^3/cmm (157-399) L 02/23/24 03:29 MPV 12.0 fL (7.4-10.4) H 02/23/24 03:29 Neut % (Auto) 73.2 % 02/23/24 03:29 Lymph % (Auto) 15.4 % 02/23/24 03:29 [place] % (Auto) 10.5 % 02/23/24 03:29 Eos % (Auto) 0.5 % 02/23/24 03:29 Baso % (Auto) 0.2 % 02/23/24 03:29 Neut # (Auto) 3.14 10^3/uL (1.8-7.7) 02/23/24 03:29 Lymph # (Auto) 0.7 10^3/uL (0.8-4.8) L 02/23/24 03:29 [place] # (Auto) 0.5 10^3/uL (0.2-0.9) 02/23/24 03:29 Eos # (Auto) 0.0 10^3/uL (0.0-0.8) 02/23/24 03:29 Baso # (Auto) 0.0 10^3/uL (0.0-0.1) 02/23/24 03:29 Nucleated RBC % (auto) 0 % 02/23/24 03:29 Nucleated RBCs # 0.0 /100WBC 02/23/24 03:29 Peripher Smr Path Cons Sent for review 02/21/24 03:34 ESR 27 mm/hr (0-10) H 02/21/24 03:34 PT 14.40 SECONDS (12.1-14.9) 02/19/24 20:20 INR 1.09 (0.8-1.2) 02/19/24 20:20 APTT 33.6 SECONDS (23.9-36.7) 02/19/24 20:20 Sodium 139 mmol/L (136-145) 02/23/24 03:29 Potassium 3.8 mmol/L (3.5-5.1) 02/23/24 03:29 Chloride 105 mmol/L (98-107) 02/23/24 03:29 Carbon Dioxide 23 mmol/L (22-29) 02/23/24 03:29 Anion Gap 14.8 (5-19) 02/23/24 03:29 BUN 14 mg/dL (8-23) 02/23/24 03:29 Creatinine 0.7 mg/dL (0.7-1.2) 02/23/24 03:29 GFR Calculation 112.5 mL/min (90-130) 02/23/24 03:29 Glucose 110 mg/dL (65-115) 02/23/24 03:29 Calculated Osmolality 289 mOsm/kg (285-295) 02/23/24 03:29 Lactic Acid 0.8 mmol/L (0.5-2.2) 02/19/24 20:20 Calcium 7.8 mg/dL (8.5-10.5) L 02/23/24 03:29 Phosphorus 3.6 mg/dL (2.5-4.5) 02/21/24 03:34 Magnesium 2.1 mg/dL (1.7-2.3) 02/23/24 03:29 Total Bilirubin 0.8 mg/dL (0.15-1.2) 02/19/24 20:20 AST 18 U/L (0-40) 02/19/24 20:20 ALT 16 U/L (0-41) 02/19/24 20:20 Alkaline Phosphatase 121 U/L (40-130) 02/19/24 20:20 Creatine Kinase 404 U/L (39-308) H* 02/23/24 03:29 Troponin T Baseline 27 ng/L (0-15) H 02/19/24 20:20 Troponin T 120 Minute 29.84 ng/L (0-15) H 02/19/24 22:54 Delta Troponin T 2.84 ABS# (0-10) 02/19/24 22:54 Troponin T Hi Sens 6Hr 35.13 ng/L (0-15) H 02/20/24 02:20 Troponin T Hi Sens 6Hr Delta 8.13 ng/L (0-12) 02/20/24 02:20 C-Reactive Protein 124.2 mg/L (0.0-4.9) H 02/21/24 03:34 NT-Pro-B Natriuret Pep 243 pg/mL (0-125) H 02/19/24 20:20 Total Protein 6.5 g/dL (6.6-8.7) L 02/19/24 20:20 Albumin 4.3 g/dL (3.5-5.2) 02/19/24 20:20 Globulin 2.2 g/dL (1.3-4.6) 02/19/24 20:20 Procalcitonin 0.49 ng/mL (0-0.5) 02/21/24 03:34 Urine Color Yellow (Yellow) 02/19/24 20:46 Urine Appearance Clear (CLEAR) 02/19/24 20:46 Urine pH 7.5 (5-7) 02/19/24 20:46 Ur Specific [place] 1.022 (1.005-1.030) 02/19/24 20:46 Urine Protein Trace (Negative) A 02/19/24 20:46 Urine Glucose (UA) Negative (Normal) 02/19/24 20:46 Urine Ketones Negative (Negative) 02/19/24 20:46 Urine Blood Negative (Negative) 02/19/24 20:46 Urine Nitrate Negative (Negative) 02/19/24 20:46 Urine Bilirubin Negative (Negative) 02/19/24 20:46 Urine Urobilinogen 1.0 mg/dL (Negative) 02/19/24 20:46 Ur Leukocyte Esterase Negative (Negative) 02/19/24 20:46 Urine RBC 0-2 /hpf (0-2) 02/19/24 20:46 Urine WBC 0-5 /hpf (0-5) 02/19/24 20:46 Ur Squamous Epith Cells 0-5 /hpf (0-5) 02/19/24 20:46 Amorphous Sediment Not Reportable 02/19/24 20:46 Urine Bacteria None seen /hpf (NONE) 02/19/24 20:46 Hyaline Casts 0-4 /lpf H 02/19/24 20:46 Vancomycin Trough 6.5 ug/mL (10-15) L 02/22/24 20:58 Adenovirus (PCR) Not detected (NOT DETECT) 02/19/24 21:00 C. pneumoniae DNA (PCR) Not detected (NOT DETECT) 02/19/24 21:00 C. difficile (PCR) Negative (Negative) 02/22/24 10:02 Coronavirus 229E (PCR) Not detected (NOT DETECT) 02/19/24 21:00 Human Metapneumovir PCR Not detected (NOT DETECT) 02/19/24 21:00 Influenza A (H1) PCR Not detected (NOT DETECT) 02/19/24 21:00 Influ A (H1/09) PCR Not detected (NOT DETECT) 02/19/24 21:00 Influenza A (H3) PCR Not detected (NOT DETECT) 02/19/24 21:00 Influenza Type A (PCR) Not detected (NOT DETECT) 02/19/24 21:00 Influenza Type B (PCR) Not detected (NOT DETECT) 02/19/24 21:00 M. pneumoniae (PCR) Not detected (NOT DETECT) 02/19/24 21:00 Parainfluenza 1 (PCR) Not detected (NOT DETECT) 02/19/24 21:00 Parainfluenza 2 (PCR) Not detected (NOT DETECT) 02/19/24 21:00 Parainfluenza 3 (PCR) Not detected (NOT DETECT) 02/19/24 21:00 Parainfluenza 4 (PCR) Not detected (NOT DETECT) 02/19/24 21:00 RSV Type A (PCR) Not detected (NOT DETECT) 02/19/24 21:00 RSV Type B (PCR) Not detected (NOT DETECT) 02/19/24 21:00 Entero/Rhino (PCR) Not detected (NOT DETECT) 02/19/24 21:00 SARS-CoV-2 (PCR) Not detected (NOT DETECT) 02/19/24 21:00 Vitals Last Vital Signs Temp 98.1 F 02/23/24 07:18 Pulse 91 02/23/24 08:08 Resp 18 02/23/24 08:08 BP 159/81 02/23/24 07:18 Pulse Ox 92 02/23/24 08:08 O2 Del Method Room Air 02/23/24 08:08 O2 Flow Rate 2 02/23/24 08:00 Discharge Plan Discharge Patient Disposition: Home Condition: Stable Prescriptions: New amoxicillin-pot clavulanate 875-125 mg tablet 1 tab PO BID 7 Days Qty: 14 0RF ciprofloxacin HCl 500 mg tablet 500 mg PO BID 5 Days Qty: 10 0RF Continued curcumin-phosphatidylcholine 500 mg capsule 500 mg PO DAILY BLOOD FLOW 7 1 cap PO DAILY gabapentin 800 mg tablet See Rx Instructions .ROUTE .COMPLEX Qty: 300 2RF Dose Instruction: TAKE 1 TABLET BY MOUTH 3 TIMES DAILY Rx Instructions: TAKE 1 TABLET BY MOUTH 3 TIMES DAILY furosemide 20 mg tablet 20 mg PO DAILY Rx Instructions: TAKE 1 TABLET BY MOUTH TWICE DAILY potassium chloride 20 mEq tablet,ER particles/crystals 20 meq PO DAILY Rx Instructions: TAKE 1 TABLET BY MOUTH DAILY ropinirole 4 mg tablet See Rx Instructions .ROUTE .COMPLEX Rx Instructions: Take 2 mg by mouth at 5am, noon, 7pm and 9pm daily simvastatin 20 mg tablet 20 mg PO BEDTIME Rx Instructions: TAKE 1 TABLET BY MOUTH DAILY Eliquis 5 mg Tablet 5 mg PO BID Changed baclofen 20 mg tablet 20 mg PO QID PRN (Reason: spasms) Qty: 30 0RF Discontinued amlodipine 5 mg tablet 5 mg PO DAILY ibuprofen [Advil] 200 mg Tablet 600 mg PO Q6H PRN (Reason: Pain) Discharge Orders: Discharge Order (Routine); Ordered 02/23/24 Ordered By: López Zaragoza Referrals: Sunita Quiroga NP [Primary Care Provider] - Discharge Diet: Cardiac Discharge Activity: Resume usual activity Patient Instructions: Opioid Safety Activity Restrictions/Additional Instructions: - Please follow-up with primary care provider this week -Take antibiotics as prescribed -Resume lymphedema wraps Discharge Attestations Time Spent in Discharge Care*: greater than 30 min Quality Metrics Clinical Quality Measures [ No reported AMI, CVA or VTE this stay] Coding Level of Care Code 64152 Total time (in minutes) for Discharge: 45 Diagnoses Cellulitis L03.115 Laterality: right Site of cellulitis: extremity Site of cellulitis of extremity: lower extremity Pneumonia J18.9 Laterality: bilateral Lung location: lower lobe of lung Pneumonia type: due to unspecified organism Lymphedema I89.0 Other acute pulmonary embolism without acute cor pulmonale I26.99 Pulmonary embolism type: other Chronicity: acute Acute cor pulmonale presence: without acute cor pulmonale Pancytopenia D61.818 Acute kidney injury N17.9 Rhabdomyolysis M62.82
[2024-02-23] MEDS: FUROsemide 10 mg/mL SDV 4mL 40 MG IVP (09:43)
[2024-02-23] MEDS: potassium chloride ER 20 mEq Tablet 40 MEQ PO (09:43)
--- NOTE | 2024-02-23 09:55 | PC.CHAP ---
Pastoral Care Encounter/Spiritual Assessment Type of Contact [] Declined lace inspector visit [] Patient/Family/Request visit [] Outpatient visit [] Follow-up visit [] Physician referral [] Code/Alert [x] Routine visit [] Staff referral [] Actively dying [] Patient sleeping [] Family support [] [] Out of room [] Palliative care [] [x] Receiving care in room [] Pre-surgical visit [] Trauma [] Long length of stay [] ICU visit [] Other: Relational/Emotional Strength [] Patient feels connected with others/family/visitors/staff [] Distress [] Loneliness/isolation [] Abandonment Spirituality of Patient [] Person of Maddi [] Attends Christian of their Maddi [] Believes in Prayer [] Reads Bible or Sikh materials [] There are Spiritual issues to be addressed Government Sales Manager Interventions [x] Prayer [] Active listening [] Non-anxious presence [] Spiritual/emotional support [] Crisis/trauma care [] Spiritual counseling [] Bereavement support [] Provided bereavement packet [] Provided Bible/devotional materials [] Provided toy/stuffed animal, coloring book to patient or family member [] Provided Communion [] Anointing/[place] [] Salvation [] Completed spiritual assessment [] Other: Impact on Illness or Injury [] Angry [] Fearful [] Anxious [] Often cries [] Exhaustion [] Unable to work [] Unable to attend taoism [] Unable to walk/stand [] Unable to read [] Unable to drive [] Unable to eat/drink [] Unable to sleep [] Unable to be with family [] Patient intubated [] Other: Summary Time spent with patient
--- NOTE | 2024-02-23 12:48 | P.PN_ITS ---
Subjective 2 Subjective: Patient was seen this morning, he is alert and oriented x 3, following all commands, denies any headache, no blurry vision, no nausea, no vomiting, no fevers, no chills, does report bilateral extremity weakness, but he tells me that that is been since his back surgery, denies any other focal weakness, no facial droop, no slurring of her words, yesterday evening just before his discharge patient was having episodes of confusion, confusion throughout the night, we had a discussion he has been using baclofen scheduled, not as needed, and he also uses gabapentin, and Requip scheduled doses, even during the day, for restless leg, possibility of his confusion could be withdrawal plan on resuming his medications, he denies any abdominal pain, no diarrhea, no dysuria, hematuria, he is on room air, no cough. During my lengthy conversation, he does have episodes of intermittent confusion, nursing staff at night to report hallucinations, Vitals/I&O/Wt Last Vital Signs Temp 98.3 F 02/23/24 11:37 Pulse 96 02/23/24 11:37 Resp 18 02/23/24 11:37 BP 143/59 02/23/24 11:37 Pulse Ox 92 02/23/24 11:37 O2 Del Method Room Air 02/23/24 11:37 O2 Flow Rate 2 02/23/24 08:00 02/22/24 02/23/24 02/23/24 22:59 06:59 14:59 Intake Total 660 / 830 1300 / 2130 540 / 540 Output Total 300 / 300 Balance 660 / 830 1000 / 1830 540 / 540 Weight last 48 hrs Weight 79.379 kg Weight 79.061 kg Physical Exam 2 Const: COMMON NORMALS: no acute distress and patient oriented x3 Resp: COMMON NORMALS: normal respiratory effort, No retractions, No use of accessory muscles and clear to auscultation bilaterally AUSCULTATION: clear to auscultation bilaterally Cardio: COMMON NORMALS: regular rate, regular rhythm, S1 normal heart sound present and S2 normal heart sound present RATE: regular rate RHYTHM: r egular rhythm HEART SOUNDS: S1 normal heart sound present and S2 normal heart sound present GI: COMMON NORMALS: Normal to inspection, nondistended, normoactive bowel sounds present and non-tender Extremity: COMMON NORMALS: no pedal edema Neuro: COMMON NORMALS: patient oriented x3, CN's II-XII intact bilaterally, moves all extremities and no focal motor deficits Data 02/24/24 05:49 02/24/24 05:49 Micro: Microbiology 02/20/24 02:04 Gram Stain - Final Leg - #1 Wound Culture - Final Serratia marcescens Methicillin Resis Staph Aureus A&P Assessment and plan (1) Cellulitis: Qualifiers: Laterality: right Site of cellulitis: extremity Site of cellulitis of extremity: lower extremity Qualified Code(s): L03.115 - Cellulitis of right lower limb (2) Pneumonia: Qualifiers: Laterality: bilateral Lung location: lower lobe of lung Pneumonia type: due to unspecified organism Qualified Code(s): J18.9 - Pneumonia, unspecified organism (3) Lymphedema: (4) Pulmonary embolism: Qualifiers: Pulmonary embolism type: other Chronicity: acute Acute cor pulmonale presence: without acute cor pulmonale Qualified Code(s): I26.99 - Other pulmonary embolism without acute cor pulmonale (5) Pancytopenia: (6) Acute kidney injury: (7) Rhabdomyolysis: (8) Acute encephalopathy: Plan Acute encephalopathy ? Neurochecks, NIH stroke scale -Likely medication withdrawal from baclofen, Requip, -Continue home gabapentin -CRP is 130, continue broad-spectrum antibiotic therapy -CT head ordered, chest x-ray ordered, repeat blood work ordered Acute anemia, hemoglobin 8.8 -Currently on Eliquis for history of DVT -Protonix, Carafate -Iron studies, Hemoccult stool Cellulitis, bilateral lower extremities -Febrile, resolved -Erythema, swelling, tenderness extending from the ankles up to just below the knee -Ultrasound bilateral lower extremity no acute DVT ? X-ray of bilateral extremities no acute findings ? vancomycin ? Zosyn ? Follow blood cultures ? Follow-up tissue cultures Acute kidney injury, resolved -Concerning for rhabdomyolysis -Possible contrast-induced nephropathy -Fluids stopped -Could be related to Zyvox, which has been discontinued Pancytopenia, resolving -Could be related to cellulitis, pneumonia and Zyvox -Zyvox has been stopped -Switch to vancomycin History of lower extremity pulm embolism on Eliquis Pneumonia, hypoxia requiring 2 L # Continue vancomycin, Zosyn Follow blood cultures as above Eliquis for DVT prophylaxis This patient is DNR/DNI Discharge last night canceled this morning counseled, due to acute encephalopathy Attestations 2 Medical Necessity Statement*: Patient requires hospitalization for acute encephalopathy, acute anemia Diagnoses Cellulitis L03.115 Laterality: right Site of cellulitis: extremity Site of cellulitis of extremity: lower extremity Pneumonia J18.9 Laterality: bilateral Lung location: lower lobe of lung Pneumonia type: due to unspecified organism Lymphedema I89.0 Other acute pulmonary embolism without acute cor pulmonale I26.99 Pulmonary embolism type: other Chronicity: acute Acute cor pulmonale presence: without acute cor pulmonale Pancytopenia D61.818 Acute kidney injury N17.9 Rhabdomyolysis M62.82 Acute encephalopathy G93.40
--- NOTE | 2024-02-23 14:03 | PC.NURSE ---
This nurse called report to Alcira at [facility] at [phone].
--- NOTE | 2024-02-23 15:25 | PC.NURSE ---
Addendum entered by Earnestine Berger LPN 02/23/24 17:46: This nurse called Guanak[facility] Brown at 1745 to inquire about an ETA. Alonso said they're waiting for the weather to down and they will get back on schedule. He said they would be here this evening, but did not specify a time. Original Note: D/C pending EMS transport
--- NOTE | 2024-02-23 18:46 | PC.NURSE ---
Pt has become increasingly confused waiting on EMS to arrive to transport him to [facility] where he was completely A&Ox4 this morning. Dr. Zaragoza was made aware at 1754. Dr. Zaragoza specified to monitor mentation and if pt is not A&Ox 3 at time of EMS arrival, we do not need to d/c him. As of now, pt can state his name, and the year, however, he believes he is at home in his basement and keeps trying to get out of bed. This nurse as well as CORNELIO Collins did a full linen and brief change at 1840 and bed alarm was turned on. This nurse gave report to ROBERTO Adams at 1849 and relayed this information. She verbalized understanding.
[2024-02-23] MEDS: atorvastatin 40 mg Tablet 20 MG PO (20:29)
[2024-02-23] MEDS: pramipexole 0.25 mg Tablet 0.5 MG PO (20:29)
[2024-02-24] VITALS (17 sets, daily range): BP systolic 138–161; BP diastolic 63–79; PULSE 65–90; RESP 15–19; TEMP 36.6–37.7; O2SAT 90–97
[2024-02-24] MEDS: piperacillin-tazobactam 3.375 GM in sodium chloride 0.9% (plus) 50 ML IV ×3 (00:21→16:01)
[2024-02-24] MEDS: ipratropium-albuterol 3 mL Neb INHALATION ×7 (00:46→23:54)
--- NOTE | 2024-02-24 05:48 | PC.NURSE ---
pt has been AMS all shift, dayshift reported the patient got increasingly confused during the day and this has progressed into the evening. the patient started to develop auditory and visual hallucinations. the patient was heard from the nursing station yelling BIRD PANG when this nurse walked into the patients room and asked the patient what was wrong he stated he was shooting the angles. When rounding later in the evening this nurse walked into the patient room to the patient grasping the top rails of his bead and staring wide eyed at the ceiling. when asking the patient what was wrong he stated i gotta get this back pack off of me, its wet and its stuck to me . when this nurse attempted to redirect the patient the patient stated I'm not at the hospital im at the farm.. i gotta get this bag off and shoot it all away the nurse asked what he was shooting away and the patient stated the animals i gotta get the bullets out because they are wet . this nurse during later rounding found the patient in his room crying and pointing to the closed window stating he is out there we have to get him inside when asking the patient who was outside he stated his son was outside the window in the rain and he needed help this nurse attempted to redirect the patient once agian and the patient became agitated stating that we weren't helping him and we were holding him captive in the house and he wanted to be back home. Later in the night the patients PATIENT SAFETY ATTENDANT came and got this nurse due to the patient yelling agian this time the patient had stated i need blankets i gotta get the snake out of here. These are just a handful of patient behavior over the night, multiple attempts have been made to redirect the patient with most failing. the patient had recently been swapped from Ropinirole 2mg QID to pramipexole 0.5mg at bedtime, this change occurred at admission. the new medication has a side effect that can cause hallucinations. the patient also takes his PRN baclofen 2mg QID at home every day and has not taken it while in the hospital and could be having withdrawals. this nurse as well as charge Yina will pass information along to dayshift staff.
[2024-02-24 06:16] LABS: Vancomycin Trough 8.3 ug/mL (10-15)
[2024-02-24 06:33] LABS: Creatine Phosphokinase 500 U/L (39-308)
[2024-02-24] MEDS: VANCOMYCIN ADD-Vantage 750 MG in 0.9% NaCl ADD-Vantage 250 ML 250 MG IV ×3 (06:42→23:35)
--- NOTE | 2024-02-24 08:07 | CTR_ITS ---
PROCEDURE INFORMATION: Exam: CT Head Without Contrast Exam date and time: 02/24/2024 9:53 AM Age: 68 years old Clinical indication: Altered mental status/memory loss; Additional info: AMS TECHNIQUE: Imaging protocol: Computed tomography of the head without contrast. Radiation optimization: All CT scans at this facility use at least one of these dose optimization techniques: automated exposure control; mA and/or kV adjustment per patient size (includes targeted exams where dose is matched to clinical indication); or iterative reconstruction. COMPARISON: CT head wo/w con [id number] 03/26/2023 8:50 PM RADIATION DOSE METRICS: Total DLP (mGy-cm): 1139.49 FINDINGS: Brain: There is no evidence of acute parenchymal hemorrhage, extra-axial collection, or acute infarction. There is no mass effect, midline shift, or downward herniation. Cerebral ventricles: No ventriculomegaly. Paranasal sinuses: There is mild paranasal sinus mucosal thickening. Mastoid air cells: There is a small left mastoid effusion. Bones: Unremarkable. No acute fracture. Soft tissues: Unremarkable. CT/CT head wo con* [id number] IMPRESSION: No evidence of acute intracranial process.
--- NOTE | 2024-02-24 08:08 | XR_ITS ---
WS: [id number] PORTABLE CHEST HISTORY: ams COMPARISON: 02/19/2024 Progression of scattered pulmonary opacifications and pulmonary edema since the prior study. Increasi ng opacifications are present in the upper and lower lung moody. No pleural effusion or pneumothorax . Cardiac size: Mildly enlarged cardiac silhouette. Mediastinum/Aorta: Moderate atherosclerosis aorta. Pulmonary arteries are prominent. High riding humeral heads from chronic rotator cuff tears. XR/XR chest 1V portable [id number] IMPRESSION: 1. Progression of the pulmonary opacifications and edema since 02/19/2024. 2. No dense consolidation or pneumonia. 3. Mild cardiomegaly.
--- NOTE | 2024-02-24 08:08 | ECG_ITS ---
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 Measurements Intervals [place] Rate: 74 P: 62 NE: 189 QRS: 78 QRSD: 104 T: 49 QT: 399 QTc: 443 Interpretive Statements SINUS RHYTHM Compared to ECG 02/20/2024 03:03:29 Sinus tachycardia no longer present Electronically Signed On 02-26-2024 22:00:58 TOOL OR DIE DRAWING CHECKER by Jaren Black M.D. [email or web address]
[2024-02-24 08:14] LABS: Basophils % 0.4 %; Eosinophils % 0.2 %; Lymphocytes # 0.5 10^3/uL (0.8-4.8); Lymphocytes % 10.3 %; Mean Corpuscular HGB Conc 31.4 g/dL (30-55); Mean Corpuscular Hemoglobin 28.3 pg (27-33); Mean Platelet Volume 12.2 fL (7.4-10.4); Monocytes # 0.7 10^3/uL (0.2-0.9); Monocytes % 13.3 %; Neutrophils % 75.4 %; Nucleated Red Blood Cells % 0 %; Platelet Count 127 10^3/cmm (157-399); Red Blood Count 3.11 10^6/uL (3.85-5.65); Red Cell Distribution Width 14.6 % (12.1-15.1); White Blood Count 5.04 10^3/uL (3.29-11.43)
[2024-02-24] MEDS: budesonide 0.5 mg/2 mL Neb INHALATION ×2 (08:18→19:55)
[2024-02-24 08:30] LABS: Slide Review Slide Review Perform
[2024-02-24] MEDS: apixaban 5 mg Tablet PO ×2 (08:38→16:30)
[2024-02-24] MEDS: gabapentin 400 mg Capsule 800 MG PO ×3 (08:38→20:05)
[2024-02-24 08:39] LABS: Free T4 Free Thyroxine 1.32 ng/dL (0.82-1.77); Procalcitonin 0.12 ng/mL (0-0.5); T3 Free 2.3 PG/ML (2.0-4.4); Thyroid Stimulating Hormone 2.77 uIU/mL (0.27-4.20)
[2024-02-24] MEDS: baclofen 10 mg Tablet 20 MG PO ×4 (08:40→20:06)
[2024-02-24 08:50] LABS: Alanine Aminotransferase 37 U/L (0-41); Albumin Level 3.3 g/dL (3.5-5.2); Alkaline Phosphatase 77 U/L (40-130); Anion Gap 19.2 (5-19); Aspartate Amino Transferase 44 U/L (0-40); Blood Urea Nitrogen 11 mg/dL (8-23); C Reactive Protein 130.7 mg/L (0.0-4.9); Calcium 7.8 mg/dL (8.5-10.5); Carbon Dioxide 21 mmol/L (22-29); Chloride 101 mmol/L (98-107); Creatinine Clr Calc Pharmacy 105.5656; Globulin 2.2 g/dL (1.3-4.6); Glomerular Filtration Rate 112.5 mL/min (90-130); Glucose 110 mg/dL (65-115); Magnesium 1.9 mg/dL (1.7-2.3); Osmolality Calculated 286 mOsm/kg (285-295); Potassium 3.2 mmol/L (3.5-5.1); Sodium 138 mmol/L (136-145); Total Bilirubin 1.3 mg/dL (0.15-1.2); Total Protein 5.5 g/dL (6.6-8.7)
[2024-02-24 10:17] LABS: Troponin(5th) Baseline 29 ng/L (0-15)
[2024-02-24 10:19] LABS: Ammonia 24 umol/L (16-60)
[2024-02-24 10:20] LABS: Lactic Sepsis W/Reflex 1.2 mmol/L (0.5-2.2)
[2024-02-24 11:50] LABS: Ferritin 366 ng/mL (30-400); Iron 22 ug/dL (59-158); Percent Saturation 9.6 % (20-50); Total Iron Binding Capacity 228 mcg/dl; Unsaturated Iron Binding 206 ug/dL (112-347)
[2024-02-24] MEDS: pantoprazole 40 mg SDV IVP ×2 (12:13→23:35)
[2024-02-24] MEDS: sucralfate 1 gm Tablet PO ×2 (12:13→23:35)
[2024-02-24] MEDS: ropinirole 2 mg Tablet PO ×3 (12:17→20:06)
[2024-02-24 13:40] LABS: Troponin 5 2HR 27.04 ng/L (0-15)
[2024-02-24 13:53] LABS: Troponin 5 2HR Delta -1.96 ABS# (0-10)
[2024-02-24] MEDS: potassium chloride ER 20 mEq Tablet 40 MEQ PO (14:32)
[2024-02-24 15:23] LABS: Bilirubin Urine 1+ (Negative); Blood Urine Negative (Negative); Glucose Urine UA Negative (Normal); Ketones Urine 1+ (Negative); Leukocyte Esterase Urine Negative (Negative); Nitrate Urine Negative (Negative); Protein Urine 1+ (Negative); Specific Gravity, Urine 1.025 (1.005-1.030); Urine Appearance Clear (CLEAR); Urine Color Dark Yellow (Yellow)
[2024-02-24 15:25] LABS: Add Urine Microscopic? YES; Bacteria Urine None Seen /hpf; Hyaline Casts Urine 0-4 /lpf; Squamous Epithelial Cell Urine 0-5 /hpf (0-5); WBC Urine 0-5 /hpf (0-5)
[2024-02-24 15:48] LABS: Troponin 5 6HR 23.95 ng/L (0-15)
[2024-02-24 15:49] LABS: Troponin 5 6HR Delta -5.05 ng/L (0-12)
[2024-02-24] MEDS: atorvastatin 40 mg Tablet 20 MG PO (20:06)
[2024-02-24 23:10] LABS: Vancomycin Trough 8.8 ug/mL (10-15)
[2024-02-25] VITALS (11 sets, daily range): BP systolic 155–183; BP diastolic 68–82; PULSE 65–82; RESP 14–18; TEMP 36.7–36.9; O2SAT 89–96
[2024-02-25] MEDS: piperacillin-tazobactam 3.375 GM in sodium chloride 0.9% (plus) 50 ML IV ×2 (00:49→07:49)
[2024-02-25] MEDS: ipratropium-albuterol 3 mL Neb INHALATION ×2 (03:55→08:46)
[2024-02-25 05:57] LABS: Basophils % 0.2 %; Eosinophils # 0.1 10^3/uL (0.0-0.8); Eosinophils % 2.1 %; Hematocrit 28.7 % (37-53); Lymphocytes # 0.7 10^3/uL (0.8-4.8); Lymphocytes % 11.8 %; Mean Corpuscular HGB Conc 32.1 g/dL (30-55); Mean Corpuscular Hemoglobin 28.8 pg (27-33); Mean Corpuscular Volume 89.7 fl (82-101); Mean Platelet Volume 11.1 fL (7.4-10.4); Monocytes # 0.5 10^3/uL (0.2-0.9); Monocytes % 8.5 %; Neutrophils # 4.34 10^3/uL (1.8-7.7); Neutrophils % 76.3 %; Nucleated Red Blood Cells % 0 %; Platelet Count 146 10^3/cmm (157-399); Red Cell Distribution Width 14.6 % (12.1-15.1); White Blood Count 5.68 10^3/uL (3.29-11.43)
[2024-02-25] MEDS: ropinirole 2 mg Tablet PO ×2 (06:03→11:44)
[2024-02-25] MEDS: VANCOMYCIN ADD-Vantage 750 MG in 0.9% NaCl ADD-Vantage 250 ML 250 MG IV (06:03)
[2024-02-25 06:14] LABS: Anion Gap 13.5 (5-19); Blood Urea Nitrogen 10 mg/dL (8-23); Calcium 7.8 mg/dL (8.5-10.5); Carbon Dioxide 25 mmol/L (22-29); Chloride 104 mmol/L (98-107); Creatinine Clr Calc Pharmacy 105.2437; Glomerular Filtration Rate 134.4 mL/min (90-130); Glucose 95 mg/dL (65-115); Osmolality Calculated 287 mOsm/kg (285-295); Potassium 3.5 mmol/L (3.5-5.1); Sodium 139 mmol/L (136-145)
[2024-02-25 06:16] LABS: C Reactive Protein 111.1 mg/L (0.0-4.9)
[2024-02-25 06:21] LABS: Procalcitonin 0.09 ng/mL (0-0.5)
[2024-02-25] MEDS: gabapentin 400 mg Capsule 800 MG PO (07:49)
[2024-02-25] MEDS: apixaban 5 mg Tablet PO (07:49)
[2024-02-25] MEDS: baclofen 10 mg Tablet 20 MG PO ×2 (07:49→11:43)
--- NOTE | 2024-02-25 08:38 | PM.DCS ---
Discharge Providers Date of Admission: 02/20/24 01:02 Date of Discharge: February 25, 2024 Attending Provider at Admission: Gordon Flores MD Attending Provider at Discharge: López Zaragoza MD Primary Care Provider: Sunita Quiroga NP Diagnoses at Discharge Discharge Diagnosis (1) Cellulitis: Status: Acute Qualifiers: Laterality: right Site of cellulitis: extremity Site of cellulitis of extremity: lower extremity Qualified Code(s): L03.115 - Cellulitis of right lower limb (2) Pneumonia: Status: Acute Qualifiers: Laterality: bilateral Lung location: lower lobe of lung Pneumonia type: due to unspecified organism Qualified Code(s): J18.9 - Pneumonia, unspecified organism (3) Lymphedema: Status: Acute (4) Pulmonary embolism: Status: Acute Qualifiers: Pulmonary embolism type: other Chronicity: acute Acute cor pulmonale presence: without acute cor pulmonale Qualified Code(s): I26.99 - Other pulmonary embolism without acute cor pulmonale (5) Pancytopenia: Status: Acute (6) Acute kidney injury: Status: Acute (7) Rhabdomyolysis: Status: Acute (8) Acute encephalopathy: Status: Acute Reason for Visit Reason for Visit: SOB, Low back pain Hospital Course Hospital Course This is a 68-year-old male, with a past medical hypertension hyperlipidemia, history of PE on Eliquis who presents [facility] for shortness of breath lower extremity edema For his cellulitis and bilateral extremity edema, febrile, requiring IV antibiotics, blood cultures so far unremarkable, remains afebrile for the last 48 hours, discharged on p.o. antibiotics Patient's hospitalization was complicated by HARMONY, concern for rhabdomyolysis, possible contrast-induced nephropathy, possibly side effect of Zyvox. Medications were stopped, transition to vancomycin, creatinine on discharge is 0.7 Pancytopenia, likely related to cellulitis, pneumonia, Zyvox. Zyvox as well as switch to vancomycin, pancytopenia has improved on discharge, at follow-up with primary care repeat CBC as outpatient Pneumonia requiring 2 L, received broad-spectrum antibody therapy, discharged on p.o. antibiotics Discharge Data Studies Completed and Pending Completed Studies During Hospitalization Category Date Time Status CT ang ches abdpel 32330/20522 Stat Cat Scan 02/19/24 23:[address] head wo con* [id number] Stat Cat Scan 02/24/24 08:07 Completed XR chest 1V portable [id number] Routine Exams 02/24/24 08:08 Completed XR chest 1V portable [id number] Stat Exams 02/19/24 20:29 Completed XR tibia fibula LT 2V [id number] Routine Exams 02/20/24 11:08 Completed XR tibia fibula RT 2V [id number] Routine Exams 02/20/24 11:08 Completed US venous duplex lower extremity bilat [CV venous Ultrasound 02/20/24 11:08 [place] [id number]] Routine Pending at discharge Category Date Time Status Basic Metabolic Panel AM LABS Lab 02/26/24 04:00 Ordered Basic Metabolic Panel AM LABS Lab 02/27/24 04:00 Ordered C Reactive Protein AM LABS Lab 02/26/24 04:00 Ordered C Reactive Protein AM LABS Lab 02/27/24 04:00 Ordered Complete Blood Count w/Auto AM LABS Lab 02/26/24 04:00 Ordered Complete Blood Count w/Auto AM LABS Lab 02/27/24 04:00 Ordered Procalcitonin AM LABS Lab 02/26/24 04:00 Ordered Procalcitonin AM LABS Lab 02/27/24 04:00 Ordered Radiology Impressions Chest/Abdomen/Pelvis CTA 02/19/24 23:04 IMPRESSION: 1. Negative for pulmonary embolus. 2. Scattered subcentimeter short axis nonspecific mediastinal nodes. 3. Bibasilar atelectasis versus infiltrate. IMPRESSION: 1. Negative for acute inflammatory process in the abdomen or pelvis. 2. Hepatic steatosis. 3. Proximal renal artery atherosclerotic disease bilaterally with 70-80% luminal narrowing. 4. Right kidney nonobstructing renal calyceal stones. 5. Supraumbilical small hernia containing omentum and a small amount of nonspecific fluid. 6. Right hip arthroplasty changes. 7. Aortic atherosclerotic calcifications. Tibia/Fibula X-Ray 02/20/24 11:08 Impression: 1. Osteoarthritis right knee. 2. Tissue edema of the right leg. Head CT 02/24/24 08:07 IMPRESSION: No evidence of acute intracranial process. Chest X-Ray 02/24/24 08:08 IMPRESSION: 1. Progression of the pulmonary opacifications and edema since 02/19/2024. 2. No dense consolidation or pneumonia. 3. Mild cardiomegaly. Laboratory Results WBC 5.68 10^3/uL (3.29-11.43) 02/25/24 05:47 RBC 3.20 10^6/uL (3.85-5.65) L 02/25/24 05:47 Hgb 9.20 g/dL (11.27-16.99) L 02/25/24 05:47 Hct 28.7 % (37-53) L 02/25/24 05:47 MCV 89.7 fl (82-101) 02/25/24 05:47 MCH 28.8 pg (27-33) 02/25/24 05:47 MCHC 32.1 g/dL (30-55) 02/25/24 05:47 RDW 14.6 % (12.1-15.1) 02/25/24 05:47 Plt Count 146 10^3/cmm (157-399) L 02/25/24 05:47 MPV 11.1 fL (7.4-10.4) H 02/25/24 05:47 Neut % (Auto) 76.3 % 02/25/24 05:47 Lymph % (Auto) 11.8 % 02/25/24 05:47 Dickens % (Auto) 8.5 % 02/25/24 05:47 Eos % (Auto) 2.1 % 02/25/24 05:47 Baso % (Auto) 0.2 % 02/25/24 05:47 Neut # (Auto) 4.34 10^3/uL (1.8-7.7) 02/25/24 05:47 Lymph # (Auto) 0.7 10^3/uL (0.8-4.8) L 02/25/24 05:47 Dickens # (Auto) 0.5 10^3/uL (0.2-0.9) 02/25/24 05:47 Eos # (Auto) 0.1 10^3/uL (0.0-0.8) 02/25/24 05:47 Baso # (Auto) 0.0 10^3/uL (0.0-0.1) 02/25/24 05:47 Nucleated RBC % (auto) 0 % 02/25/24 05:47 Nucleated RBCs # 0.0 /100WBC 02/25/24 05:47 Peripher Smr Path Cons Sent for review 02/21/24 03:34 ESR 27 mm/hr (0-10) H 02/21/24 03:34 PT 14.40 SECONDS (12.1-14.9) 02/19/24 20:20 INR 1.09 (0.8-1.2) 02/19/24 20:20 APTT 33.6 SECONDS (23.9-36.7) 02/19/24 20:20 Sodium 139 mmol/L (136-145) 02/25/24 05:31 Potassium 3.5 mmol/L (3.5-5.1) 02/25/24 05:31 Chloride 104 mmol/L (98-107) 02/25/24 05:31 Carbon Dioxide 25 mmol/L (22-29) 02/25/24 05:31 Anion Gap 13.5 (5-19) 02/25/24 05:31 BUN 10 mg/dL (8-23) 02/25/24 05:31 Creatinine 0.6 mg/dL (0.7-1.2) L 02/25/24 05:31 GFR Calculation 134.4 mL/min (90-130) H 02/25/24 05:31 Glucose 95 mg/dL (65-115) 02/25/24 05:31 Calculated Osmolality 287 mOsm/kg (285-295) 02/25/24 05:31 Lactic Acid 1.2 mmol/L (0.5-2.2) 02/24/24 09:39 Calcium 7.8 mg/dL (8.5-10.5) L 02/25/24 05:31 Phosphorus 3.0 mg/dL (2.5-4.5) 02/24/24 05:49 Magnesium 1.9 mg/dL (1.7-2.3) 02/24/24 05:49 Iron 22 ug/dL (59-158) L 02/24/24 09:39 TIBC 228 mcg/dl 02/24/24 09:39 % Saturation 9.6 % (20-50) L 02/24/24 09:39 Unsat Iron Binding 206 ug/dL (112-347) 02/24/24 09:39 Ferritin 366 ng/mL (30-400) 02/24/24 09:39 Total Bilirubin 1.3 mg/dL (0.15-1.2) H 02/24/24 05:49 AST 44 U/L (0-40) H 02/24/24 05:49 ALT 37 U/L (0-41) 02/24/24 05:49 Alkaline Phosphatase 77 U/L (40-130) 02/24/24 05:49 Ammonia 24 umol/L (16-60) 02/24/24 09:39 Creatine Kinase 500 U/L (39-308) H* 02/24/24 05:49 Troponin T Baseline 29 ng/L (0-15) H 02/24/24 09:39 Troponin T 120 Minute 27.04 ng/L (0-15) H 02/24/24 13:00 Delta Troponin T -1.96 ABS# (0-10) L 02/24/24 13:00 Troponin T Hi Sens 6Hr 23.95 ng/L (0-15) H 02/24/24 15:24 Troponin T Hi Sens 6Hr Delta -5.05 ng/L (0-12) L 02/24/24 15:24 C-Reactive Protein 111.1 mg/L (0.0-4.9) H 02/25/24 05:31 NT-Pro-B Natriuret Pep 243 pg/mL (0-125) H 02/19/24 20:20 Total Protein 5.5 g/dL (6.6-8.7) L 02/24/24 05:49 Albumin 3.3 g/dL (3.5-5.2) L 02/24/24 05:49 Globulin 2.2 g/dL (1.3-4.6) 02/24/24 05:49 Procalcitonin 0.09 ng/mL (0-0.5) 02/25/24 05:31 TSH 2.77 uIU/mL (0.27-4.20) 02/24/24 05:49 Free T4 1.32 ng/dL (0.82-1.77) 02/24/24 05:49 Free T3 2.3 PG/ML (2.0-4.4) 02/24/24 05:49 Urine Color Dark yellow (Yellow) A 02/24/24 15:00 Urine Appearance Clear (CLEAR) 02/24/24 15:00 Urine pH 6.0 (5-7) 02/24/24 15:00 Ur Specific [place] 1.025 (1.005-1.030) 02/24/24 15:00 Urine Protein 1+ (Negative) A 02/24/24 15:00 Urine Glucose (UA) Negative (Normal) 02/24/24 15:00 Urine Ketones 1+ (Negative) H 02/24/24 15:00 Urine Blood Negative (Negative) 02/24/24 15:00 Urine Nitrate Negative (Negative) 02/24/24 15:00 Urine Bilirubin 1+ (Negative) H 02/24/24 15:00 Urine Urobilinogen 2.0 mg/dL (Negative) H 02/24/24 15:00 Ur Leukocyte Esterase Negative (Negative) 02/24/24 15:00 Urine RBC 3-5 /hpf (0-2) 02/24/24 15:00 Urine WBC 0-5 /hpf (0-5) 02/24/24 15:00 Ur Squamous Epith Cells 0-5 /hpf (0-5) 02/24/24 15:00 Amorphous Sediment Not Reportable 02/24/24 15:00 Urine Bacteria None seen /hpf (NONE) 02/24/24 15:00 Hyaline Casts 0-4 /lpf H 02/24/24 15:00 Vancomycin Trough 8.8 ug/mL (10-15) L 02/24/24 22:19 Adenovirus (PCR) Not detected (NOT DETECT) 02/19/24 21:00 C. pneumoniae DNA (PCR) Not detected (NOT DETECT) 02/19/24 21:00 C. difficile (PCR) Negative (Negative) 02/22/24 10:02 Coronavirus 229E (PCR) Not detected (NOT DETECT) 02/19/24 21:00 Human Metapneumovir PCR Not detected (NOT DETECT) 02/19/24 21:00 Influenza A (H1) PCR Not detected (NOT DETECT) 02/19/24 21:00 Influ A (H1/09) PCR Not detected (NOT DETECT) 02/19/24 21:00 Influenza A (H3) PCR Not detected (NOT DETECT) 02/19/24 21:00 Influenza Type A (PCR) Not detected (NOT DETECT) 02/19/24 21:00 Influenza Type B (PCR) Not detected (NOT DETECT) 02/19/24 21:00 M. pneumoniae (PCR) Not detected (NOT DETECT) 02/19/24 21:00 Parainfluenza 1 (PCR) Not detected (NOT DETECT) 02/19/24 21:00 Parainfluenza 2 (PCR) Not detected (NOT DETECT) 02/19/24 21:00 Parainfluenza 3 (PCR) Not detected (NOT DETECT) 02/19/24 21:00 Parainfluenza 4 (PCR) Not detected (NOT DETECT) 02/19/24 21:00 RSV Type A (PCR) Not detected (NOT DETECT) 02/19/24 21:00 RSV Type B (PCR) Not detected (NOT DETECT) 02/19/24 21:00 Entero/Rhino (PCR) Not detected (NOT DETECT) 02/19/24 21:00 SARS-CoV-2 (PCR) Not detected (NOT DETECT) 02/19/24 21:00 Vitals Last Vital Signs Temp 98.5 F 02/25/24 08:02 Pulse 82 02/25/24 08:02 Resp 16 02/25/24 08:02 BP 183/82 02/25/24 08:02 Pulse Ox 90 02/25/24 08:02 O2 Del Method Room Air 02/25/24 08:02 O2 Flow Rate 2 02/23/24 08:00 Discharge Plan Discharge Patient Disposition: Home Condition: Stable Prescriptions: New amoxicillin-pot clavulanate 875-125 mg tablet 1 tab PO BID 5 Days Qty: 10 0RF doxycycline hyclate 100 mg capsule 100 mg PO BID 5 Days Qty: 10 0RF chlorthalidone 25 mg tablet 25 mg PO DAILY 30 Days Qty: 30 0RF clonidine HCl 0.1 mg tablet 0.1 mg PO BID PRN (Reason: hypertensive emergency) 30 Days Qty: 60 0RF Rx Instructions: sbp>180 or dbp>100 Continued curcumin-phosphatidylcholine 500 mg capsule 500 mg PO DAILY BLOOD FLOW 7 1 cap PO DAILY gabapentin 800 mg tablet See Rx Instructions .ROUTE .COMPLEX Qty: 300 2RF Dose Instruction: TAKE 1 TABLET BY MOUTH 3 TIMES DAILY Rx Instructions: TAKE 1 TABLET BY MOUTH 3 TIMES DAILY furosemide 20 mg tablet 20 mg PO DAILY Rx Instructions: TAKE 1 TABLET BY MOUTH TWICE DAILY potassium chloride 20 mEq tablet,ER particles/crystals 20 meq PO DAILY Rx Instructions: TAKE 1 TABLET BY MOUTH DAILY ropinirole 4 mg tablet See Rx Instructions .ROUTE .COMPLEX Rx Instructions: Take 2 mg by mouth at 5am, noon, 7pm and 9pm daily simvastatin 20 mg tablet 20 mg PO BEDTIME Rx Instructions: TAKE 1 TABLET BY MOUTH DAILY Eliquis 5 mg Tablet 5 mg PO BID baclofen 20 mg tablet 20 mg PO QID Qty: 30 0RF Discontinued amlodipine 5 mg tablet 5 mg PO DAILY ibuprofen [Advil] 200 mg Tablet 600 mg PO Q6H PRN (Reason: Pain) Discharge Orders: Discharge Order (Routine); Ordered 02/25/24 Ordered By: López Zaragoza Referrals: Sunita Quiroga NP [Primary Care Provider] - 03/01/24 2:30 pm Discharge Diet: Cardiac Discharge Activity: Resume usual activity Patient Instructions: Ciprofloxacin (By mouth), Amoxicillin/Clavulanate Potassium (By mouth), Acute Kidney Injury (GEN), Rhabdomyolysis (GEN), Pneumonia (DC), Opioid Safety, Pneumonia Stoplight Activity Restrictions/Additional Instructions: - Please follow-up with primary care provider this week -Take antibiotics as prescribed -Resume lymphedema wraps Coding Level of Care Code Acute Code for Chg Fwd Diagnoses Cellulitis L03.115 Laterality: right Site of cellulitis: extremity Site of cellulitis of extremity: lower extremity Pneumonia J18.9 Laterality: bilateral Lung location: lower lobe of lung Pneumonia type: due to unspecified organism Lymphedema I89.0 Other acute pulmonary embolism without acute cor pulmonale I26.99 Pulmonary embolism type: other Chronicity: acute Acute cor pulmonale presence: without acute cor pulmonale Pancytopenia D61.818 Acute kidney injury N17.9 Rhabdomyolysis M62.82 Acute encephalopathy G93.40
[2024-02-25] MEDS: budesonide 0.5 mg/2 mL Neb INHALATION (08:46)
[2024-02-25] MEDS: chlorthalidone 25 mg Tablet PO (08:51)
--- NOTE | 2024-02-25 10:17 | PC.SOCIAL ---
IMM Update pg 2 of IMM updated and reviewed w/ patients . Copy provided and copy dated, initialed and placed in chart.
--- NOTE | 2024-02-25 10:55 | PC.NURSE ---
Addendum entered by Earnestine Berger LPN 02/25/24 11:04: This nurse called patients , Dariela, to inform her of patient discharging to [facility] in roughly 1 hour. Addendum entered by Earnestine Berger LPN 02/25/24 11:00: EMS expected to be here in 1hr. This nurse called Jazmyne back at [facility] to inform her of patients expected arrival time. Original Note: This nurse called report to TAMERA Samano at [facility] at 1055. Pt going by EMS transport.
--- NOTE | 2024-02-25 11:08 | PC.OT ---
OT TREATMENT HELD; PATIENT IS SCHEDULED FOR D/C TODAY.
== END 2024-02-25 11:55 | disposition skilled nursing facility (03) | DRG 602 ==
LOC: ER 02-20 00:51 → MEDSURG 02-20 01:02
PROVIDERS: Admitting Provider Internal Medicine; Emergency Provider Physician Assistant; PCP Nurse Practitioner Family; Visit Provider Family Medicine
DX: L03.116 Cellulitis of left lower limb (principal); J18.9 Pneumonia, unspecified organism; D61.818 Other pancytopenia; N17.9 Acute kidney failure, unspecified; M62.82 Rhabdomyolysis; G93.40 Encephalopathy, unspecified; L03.115 Cellulitis of right lower limb; G89.29 Other chronic pain; M54.50 Low back pain, unspecified; I10 Essential (primary) hypertension; E78.5 Hyperlipidemia, unspecified; Z86.711 Personal history of pulmonary embolism; Z66 Do not resuscitate; F10.11 Alcohol abuse, in remission; G25.81 Restless legs syndrome; Z96.641 Presence of right artificial hip joint; I89.0 Lymphedema, not elsewhere classified; R09.02 Hypoxemia; D64.9 Anemia, unspecified; N14.11 Contrast-induced nephropathy; T50.8X5A Adverse effect of diagnostic agents, initial encounter
CPT/HCPCS: 36415; 70450; 71045; 71275; 73590; 74174; 80048; 80053; 80202; 80503; 81001; 82140; 82274; 82550; 82728; 83540; 83550; 83605; 83735; 83880; 84100; 84145; 84439; 84443; 84481; 84484; 85025; 85610; 85651; 85730; 86140; 87040; 87070; 87075; 87077; 87186; 87205; 87486; 87493; 87581; 87633; 93005; 93970; 94640; 97110; 97161; 97167; 97530; 97535; 99285; J1940; J2020; J2470; J2543; J3370; J3490; J7030; J7050; J7626

== ENCOUNTER → 2024-05-19 10:29 | Outpatient (BNVA) | payer MEDICARE, SELFPAY | PROVIDERS: PCP Nurse Practitioner Family; Visit Provider Nurse Practitioner Family | DX: R07.9 Chest pain, unspecified (principal); R06.02 Shortness of breath; M79.89 Other specified soft tissue disorders | CPT/HCPCS: 93005; 99214 ==

== ENCOUNTER 2024-06-15 08:54 | Outpatient (CLI) | payer MEDICARE, SELFPAY ==
--- NOTE | 2024-06-15 | ECG_ITS ---
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 Interpretive Statements LEXISCAN: Procedure: At the baseline, the blood pressure was 141/64 mmHg with a heart rate of 65 bpm. The electrocardiogram showed normal sinus rhythm, incomplete right bundle branch block with normal ST and T's. The Lexiscan was infused over a period of 20 seconds. A total of 0.4 mg of Lexiscan was infused. The stress phase was continued for a total of 5 minutes. Heart rate was at the end of stress phase was 76 bpm and a blood pressure of 106/52 mmHg. The EKG at the peak infusion revealed normal sinus rhythm with no significant ST-T wave changes. Sestamibi was injected 20 seconds after the Lexiscan infusion. Blood pressure at the end of recovery phase was 102/52 mmHg with a heart rate of 69 bpm. Conclusion: 1. Normal EKG response to Lexiscan infusion 2. No Lexiscan induced chest pain or cardiac arrhythmia. 3. Normal blood pressure and heart rate response. 4. Sestamibi/sestamibi perfusion scan pending; see separate report. Electronically Signed On 07-06-2024 21:52:55 CDT by Masood Hendrix M.D. [id number]
[2024-06-15 08:58] VITALS: BMI 34.4
--- NOTE | 2024-06-15 09:19 | NMCV_ITS ---
NM milady perf SPECT r/s* [id number] Smith Lopez Age: 68 Gender: M : 1955 Exam Date: 06/15/2024 09:19 Ordering Phys: Lindy Enriquez NP Technologist: NANDA Dougherty Exam Location: [facility] Indications: cp STRESS TEST [facility] IMAGE PROTOCOL Rest/Stress 1 Lexiscan Day Radiopharmaceutical Dose (mCi) Administration Site Administered by Rest: Tc-99m 10.9 IV Lillian Ford, [employer] Sestamibi Stress:Tc-99m 32.5 IV Lillian Coxgle, [employer] Sestamibi Rest: 15-Jun-2024 60 Discovery 630 Stress: 15-Jun-2024 30 Discovery 630 0.4mg Lexiscan. Supine position only as patient was unable to lay prone. SPECT RESULTS Technical Quality: Good Raw Data Analysis: Normal Image Corrections: No attenuation or motion correction applied Summed Stress Score: 0 Summed Rest Score: 0 Summed Difference Score: 0 PERFUSION FINDINGS Medium size area of basal to mid moderate reversibillity noted in the inferior wall suggestive of ischemia however in the absence of wall motion abnormality cannot rule out artifact.clinical corelation advised. FUNCTIONAL RESULTS (calculated via Gated SPECT) Stress Image LV EF (%): 74 Stress EDV (mL):84 TID: 0.89 Stress ESV (mL):22 FUNCTIONAL FINDINGS: There is normal left ventricular systolic function. IMPRESSIONS Medium size area of basal to mid moderate reversibillity noted in the inferior wall suggestive of ischemia, however in the absence of wall motion abnormality cannot rule out artifact.clinical corelation advised. Arlen Flannery MD (Electronically Signed) Final Date: 15 June 2024 21:41 S
[2024-06-15] MEDS: regadenoson 0.4 Mg/5 ml Syringe IVP (11:10)
[2024-06-15 11:21] VITALS: BP 105/62; PULSE 67
--- NOTE | 2024-06-15 12:37 | USCV_ITS ---
Smith Lopez Age: 68 Gender: M : 1955 Exam Date: 06/15/2024 13:18 Ordering Phys: Lindy Enriquez NP Technologist: [place] [facility] [place] Indication: cp BP: 120 / 70 HR: 61 Rhythm: Sinus Technical Quality: Adequate MEASUREMENTS (Male / Female) Normal Values 2D ECHO LVOT Diameter 2.1 cm LV Ejection Fraction MOD 4C 57.8 % LV Ejection Fraction MOD 2C 56.6 % LV Ejection Fraction 2C AL 58.7 % LA Diameter 2.9 cm RA Systolic Volume 4C AL 46.7 ml RA Systolic Volume 4C MOD 44.7 ml LA Sys Volume AL 66.6 cm cubed LA Sys Volume Index AL 30.6 cm cubed/m squared Aorta at Sinotubular Diameter 3.2 cm M-MODE LA Ao Ratio MM 1.5 AV Cusp Separation MM 2.3 cm DOPPLER AV Peak Velocity 128.0 cm/s LVOT Peak Velocity 94.0 cm/s AV Area Cont Eq vti 2.6 cm squared AV Area Cont Eq pk 2.5 cm squared MV Peak Velocity 104.0 cm/s MV Area PHT 3.2 cm squared Mitral E to A Ratio 0.9 TR Peak Velocity 183.0 cm/s TR Peak Gradient 13.4 mmHg TV Peak E Velocity 63.0 cm/s PV Peak Velocity 125.5 cm/s FINDINGS Left Ventricle Normal left ventricular size, systolic function and wall thickness, with no regional wall motion abnormalities. Left ventricular ejection fraction is estimated at 60 %. Grade I/IV diastolic dysfunction (abnormal relaxation filling pattern), normal to mildly elevated filling pressures. Right Ventricle The right ventricle is normal in size and function. Right Atrium The right atrium is normal in size. Left Atrium The left atrium is normal in size. Mitral Valve Structurally normal mitral valve without significant stenosis or prolapse. There is no mitral regurgitation. Aortic Valve Mild aortic valve calcification. No aortic valve stenosis. Trace aortic valve regurgitation. Tricuspid Valve Structurally normal tricuspid valve without significant stenosis or regurgitation. Pulmonary artery systolic pressure is normal. Pulmonic Valve Structurally normal pulmonic valve without significant stenosis. There is no pulmonic regurgitation. Pericardium Normal pericardium without effusion. Aorta Normal ascending aorta dimension. IVC The inferior vena cava appears normal. CONCLUSIONS Normal left ventricular size, systolic function and wall thickness, with no regional wall motion abnormalities. Left ventricular ejection fraction is estimated at 60 %. Grade I/IV diastolic dysfunction (abnormal relaxation filling pattern), normal to mildly elevated filling pressures. There is no pericardial effusion. No significant valve abnormalities. Right atrial pressure is around 5 mm of mercury. Arlen Flannery MD (Electronically Signed) Final Date: 28 June 2024 11:13 S
== END 2024-06-15 08:55 | disposition home or self-care (01) ==
PROVIDERS: PCP Nurse Practitioner Family; Visit Provider Nurse Practitioner Family
DX: R07.9 Chest pain, unspecified (principal); R93.1 Abnormal findings on diagnostic imaging of heart and coronary circulation; I35.8 Other nonrheumatic aortic valve disorders
CPT/HCPCS: 36415; 78452; 93017; 93306; 96374; A9500; J2785

== ENCOUNTER → 2024-07-29 12:45 | Outpatient (BNVA) | payer MEDICARE, SELFPAY | PROVIDERS: PCP Nurse Practitioner Family; Visit Provider Nurse Practitioner Family | DX: Z01.810 Encounter for preprocedural cardiovascular examination (principal); R94.39 Abnormal result of other cardiovascular function study; I25.9 Chronic ischemic heart disease, unspecified; I10 Essential (primary) hypertension; Z86.711 Personal history of pulmonary embolism; F17.200 Nicotine dependence, unspecified, uncomplicated | CPT/HCPCS: 99214 ==

== ENCOUNTER → 2024-11-29 10:14 | Outpatient (BNVA) | payer MEDICARE, SELFPAY | PROVIDERS: PCP Nurse Practitioner Family; Visit Provider Internal Medicine Cardiovascular Disease | DX: I10 Essential (primary) hypertension (principal); E78.5 Hyperlipidemia, unspecified; G82.20 Paraplegia, unspecified; I89.0 Lymphedema, not elsewhere classified; R94.39 Abnormal result of other cardiovascular function study; Z86.711 Personal history of pulmonary embolism; Z79.01 Long term (current) use of anticoagulants; F17.210 Nicotine dependence, cigarettes, uncomplicated | CPT/HCPCS: 99214 ==